=== PATIENT | female | born 2000 | race Caucasian/White ===

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

== ENCOUNTER 2019-01-22 05:38 | Observation (INO) | payer OTHER ==
[2019-01-22 07:02] LABS: Appearance CLOUDY (CLEAR); Bacteria MODERATE /HPF (NEGATIVE); Bilirubin NEGATIVE (NEGATIVE); Blood NEGATIVE Ery/ul (0-5); Epithelial Cells RARE /HPF (FEW); Glucose NEGATIVE (NEGATIVE); Ketones NEGATIVE (NEGATIVE); Leukocyte Esterase TRACE (NEGATIVE); Mucus MODERATE /HPF (NEGATIVE); Nitrite NEGATIVE (NEGATIVE); Protein,Urine Dip 100 (Negative); Specific Gravity 1.024 (1.005-1.025); Urobilinogen NEGATIVE mg/dL (0-1)
[2019-01-22 07:12] LABS: Amphetamine,Urine NEGATIVE (NEGATIVE); Barbiturate,Urine NEGATIVE (NEGATIVE); Benzodiazepine,Urine NEGATIVE (NEGATIVE); Cocaine,Urine NEGATIVE (NEGATIVE); Methadone,Urine NEGATIVE (NEGATIVE); Opiate,Urine NEGATIVE (NEGATIVE); PCP,Urine NEGATIVE (NEGATIVE); THC,Urine POSITIVE (NEGATIVE)
[2019-01-22 08:42] VITALS: BP 114/56; PULSE 73
== END 2019-01-22 09:15 | disposition home or self-care (01) ==
LOC: NURS 05:38 → OB 05:39
PROVIDERS: ADMIT Family Medicine; ATTEND Family Medicine
DX: Z34.82 Encounter for supervision of other normal pregnancy, second trimester (principal)
CPT/HCPCS: 80307; 81001; 87086; G0378

== ENCOUNTER 2019-03-10 04:30 | Observation (INO) | payer OTHER ==
[2019-03-10 05:10] LABS: Appearance SLIGHTLY CLOUDY (CLEAR); Bilirubin NEGATIVE (NEGATIVE); Blood NEGATIVE Ery/ul (0-5); Epithelial Cells RARE /HPF (FEW); Glucose NEGATIVE (NEGATIVE); Ketones NEGATIVE (NEGATIVE); Leukocyte Esterase NEGATIVE (NEGATIVE); Mucus SLIGHT /HPF (NEGATIVE); Nitrite NEGATIVE (NEGATIVE); Protein,Urine Dip 30 (Negative); RBC 0-2 /HPF (0-2); Specific Gravity 1.024 (1.005-1.025); Urobilinogen NEGATIVE mg/dL (0-1)
[2019-03-10 05:17] LABS: Amphetamine,Urine NEGATIVE (NEGATIVE); Barbiturate,Urine NEGATIVE (NEGATIVE); Benzodiazepine,Urine NEGATIVE (NEGATIVE); Cocaine,Urine NEGATIVE (NEGATIVE); Methadone,Urine NEGATIVE (NEGATIVE); Opiate,Urine NEGATIVE (NEGATIVE); PCP,Urine NEGATIVE (NEGATIVE); THC,Urine POSITIVE (NEGATIVE)
[2019-03-10] MEDS ORDERED: Sodium Chloride 0.9% 1000 ML 1,000 ML IV STA (05:24)
[2019-03-10] MEDS ORDERED: Lactated Ringers 1,000 ML IV SCH (05:30)
[2019-03-10] MEDS ORDERED: Zofran 4 MG/2 ML VIAL IV PRN (06:29)
[2019-03-10 06:33] LABS: BASOPHIL % 0.1 % (0.0-0.4); Basophil (Absolute #) 0.01 (0-0.4); Eosinophil % 0.5 % (0.00-5.0); Eosinophil (Absolute #) 0.08 (0-0.5); Granulocyte Absolute (ANC) 15.06 (1.4-6.9); Granulocytes % 85.5 % (36.0-66.0); Hematocrit 36.4 % (35-47); Hemoglobin 12.1 gm/dl (12.0-16.0); Lymphocyte (Absolute #) 1.44 (1.0-4.6); Lymphocytes % 8.2 % (24.0-44.0); Mean Cell Volume 91.2 fl (78-100); Mean Corpuscular Hemoglobin 30.3 pg (26-32); Mean Corpuscular Hgb Concent. 33.2 g/dl (32-36); Mean Platelet Volume 10.4 fl (6-9.5); Monocytes % 5.7 % (0.0-12.0); Platelet Count 248 K/mm3 (150-450); Red Blood Count 3.99 M/mm3 (4.1-5.4); Red Cell Distribution Width 12.6 % (11.5-14.0); White Blood Count 17.6 K/mm3 (4.0-10.5)
[2019-03-10 06:58] LABS: ALBUMIN 3.3 g/dL (3.5-5.0); ALKALINE PHOSPHATASE 89 U/L (38-126); ANION GAP 12.1 MEQ/L (5-15); BLOOD UREA NITROGEN 7 mg/dL (7-17); CHLORIDE 105 mmol/L (98-107); Calcium 8.7 mg/dL (8.4-10.2); Carbon Dioxide 21 mmol/L (22-30); Creatinine 1 0.32 mg/dL (0.52-1.04); Glucose 90 mg/dL (74-106); Potassium 3.6 mmol/L (3.5-5.1); SGOT/AST 19 U/L (14-36); SGPT/ALT 13 U/L (0-35); SODIUM 134 mmol/L (137-145); Total Protein 6.3 g/dL (6.3-8.2)
[2019-03-10] MEDS ORDERED: ROCEPHIN 1 Gm-D5w 50 ml Bag** 1 G/50 ML IVPB IV SCH ×2 (10:00→22:00)
[2019-03-10 10:04] VITALS: BP 107/59; PULSE 88
== END 2019-03-10 09:45 | disposition home or self-care (01) ==
LOC: OB 04:30
PROVIDERS: ADMIT Family Medicine; ATTEND Family Medicine
DX: Z34.83 Encounter for supervision of other normal pregnancy, third trimester (principal)
CPT/HCPCS: 36415; 80053; 80307; 81001; 85025; 87086; G0378; J0696; J2405

== ENCOUNTER 2019-04-07 15:25 | Emergency (ER) | payer OTHER ==
[2019-04-07 15:36] VITALS: BP 129/78; PULSE 92; O2SAT 97
--- NOTE | 2019-04-07 15:40 | ERPHSYRPT ---
- History of Present Illness Time Seen by Provider: 04/07/19 15:36 Source: patient Physician History: Patient is 19-year-old female who works at the local [employer]. Recently him month ago one case of hepatitis C was documented and the person who has a hepatitis A was rush Lópezler at this [employer]. Local health department has already contacted us and give us information to this to be to the people who come and seek attention regarding this matter. We gave all the pimple next to the patient and explained her that she should contact health department on Tuesday morning. Patient is not showing any sign of hepatitis. Allergies/Adverse Reactions: No Known Drug Allergies Allergy (Verified 12/10/18 00:43) Home Medications: Vits W-Ca,Fe,FA(<1Mg) [] 1 tablet PO DAILY 02/21/18 [History] Hx Tetanus, Diphtheria Vaccination/Date Given: Yes Hx Influenza Vaccination/Date Given: No Hx Pneumococcal Vaccination/Date Given: No - Review of Systems Constitutional: No Fever, No Chills Eyes: No Symptoms Ears, Nose, & Throat: No Symptoms Respiratory: No Cough, No Dyspnea Cardiac: No Chest Pain, No Edema, No Syncope Abdominal/Gastrointestinal: No Abdominal Pain, No Nausea, No Vomiting, No Diarrhea Genitourinary Symptoms: No Dysuria Musculoskeletal: No Back Pain, No Neck Pain Skin: No Rash Neurological: No Dizziness, No Focal Weakness, No Sensory Changes Psychological: No Symptoms Endocrine: No Symptoms All Other Systems: Reviewed and Negative - Past Medical History Pertinent Past Medical History: Yes Neurological History: No Pertinent History ENT History: No Pertinent History Cardiac History: No Pertinent History Respiratory History: No Pertinent History Endocrine Medical History: No Pertinent History Musculoskeletal History: No Pertinent History GI Medical History: No Pertinent History History: No Pertinent History Psycho-Social History: Anxiety, Depression Female Reproductive Disorders: No Pertinent History - Past Surgical History Past Surgical History: Yes Neuro Surgical History: No Pertinent History Cardiac: No Pertinent History Respiratory: No Pertinent History Gastrointestinal: No Pertinent History Genitourinary: No Pertinent History Musculoskeletal: No Pertinent History Female Surgical History: Section - Social History Smoking Status: Current every day smoker How long have you smoked: 6 yrs Exposure to second hand smoke: Yes Drug Use: none Patient Lives Alone: No - Physical Exam General Appearance: no apparent distress, alert Eye Exam: PERRL/EOMI, eyes nml inspection Ears, Nose, Throat Exam: normal ENT inspection, TMs normal, pharynx normal, moist mucous membranes Neck Exam: normal inspection, non-tender, supple, full range of motion Respiratory Exam: normal breath sounds, lungs clear, No respiratory distress Cardiovascular Exam: regular rate/rhythm, normal heart sounds, normal peripheral pulses Gastrointestinal/Abdomen Exam: soft, normal bowel sounds, No tenderness, No mass Back Exam: normal inspection, normal range of motion, No CVA tenderness, No vertebral tenderness Extremity Exam: normal inspection, normal range of motion, pelvis stable Neurologic Exam: alert, oriented x 3, cooperative, normal mood/affect, nml cerebellar function, nml station & gait, sensation nml, No motor deficits Skin Exam: normal color, warm, dry, No rash Lymphatic Exam: No adenopathy - Course Nursing assessment & vital signs reviewed: Yes - Progress Progress: improved Counseled pt/family regarding: diagnosis, need for follow-up - Departure Departure Disposition: Home Clinical Impression: Exposure to hepatitis A Condition: Stable Critical Care Time: No Referrals: GAVI ARORA [Primary Care Provider] - Additional Instructions: please read instruction provided by health department for hepatits A . Follow up with health department on tuesday AM
== END 2019-04-07 15:49 | disposition home or self-care (01) ==
LOC: ED 15:25
DX: Z20.5 Contact with and (suspected) exposure to viral hepatitis (principal); F41.9 Anxiety disorder, unspecified; F32.9 Major depressive disorder, single episode, unspecified
CPT/HCPCS: 99283

== ENCOUNTER 2019-04-12 10:31 | Observation (INO) | payer OTHER ==
[2019-04-12 11:04] VITALS: O2SAT 98
[2019-04-12 11:16] LABS: Appearance CLOUDY (CLEAR); Bacteria FEW /HPF (NEGATIVE); Bilirubin NEGATIVE (NEGATIVE); Blood NEGATIVE Ery/ul (0-5); Epithelial Cells FEW /HPF (FEW); Glucose NEGATIVE (NEGATIVE); Ketones NEGATIVE (NEGATIVE); Leukocyte Esterase TRACE (NEGATIVE); Mucus MANY /HPF (NEGATIVE); Nitrite NEGATIVE (NEGATIVE); Protein,Urine Dip 30 (Negative); Urobilinogen NEGATIVE mg/dL (0-1)
[2019-04-12 11:26] LABS: Amphetamine,Urine NEGATIVE (NEGATIVE); Barbiturate,Urine NEGATIVE (NEGATIVE); Benzodiazepine,Urine NEGATIVE (NEGATIVE); Cocaine,Urine NEGATIVE (NEGATIVE); Methadone,Urine NEGATIVE (NEGATIVE); Opiate,Urine NEGATIVE (NEGATIVE); PCP,Urine NEGATIVE (NEGATIVE); THC,Urine POSITIVE (NEGATIVE)
[2019-04-12 13:33] VITALS: BP 121/60; PULSE 80
== END 2019-04-12 13:32 | disposition home or self-care (01) ==
LOC: OB 10:31
PROVIDERS: ADMIT Family Medicine; ATTEND Family Medicine
DX: Z34.83 Encounter for supervision of other normal pregnancy, third trimester (principal)
CPT/HCPCS: 80307; 81001; 87086; G0378

== ENCOUNTER 2019-04-29 11:03 | Observation (INO) | payer OTHER ==
[2019-04-29 14:31] LABS: Amphetamine,Urine NEGATIVE (NEGATIVE); Barbiturate,Urine NEGATIVE (NEGATIVE); Benzodiazepine,Urine NEGATIVE (NEGATIVE); Cocaine,Urine NEGATIVE (NEGATIVE); Methadone,Urine NEGATIVE (NEGATIVE); Opiate,Urine NEGATIVE (NEGATIVE); PCP,Urine NEGATIVE (NEGATIVE); THC,Urine POSITIVE (NEGATIVE)
[2019-04-29 16:19] VITALS: BP 120/65; PULSE 65
== END 2019-04-29 15:30 | disposition home or self-care (01) ==
LOC: MED SURG 11:03
PROVIDERS: ADMIT Family Medicine; ATTEND Family Medicine
DX: Z34.83 Encounter for supervision of other normal pregnancy, third trimester (principal)
CPT/HCPCS: 80307; G0378

== ENCOUNTER 2019-05-02 05:11 | Inpatient (IN) | payer OTHER ==
[~2019-05-02 05:11] MED LIST: BICITRA 30 ML CUP PO SCH; Lactated Ringers 1,000 ML IV ONE; Lactated Ringers 1,000 ML IV SCH; Pepcid 20 MG VIAL IV SCH; Reglan 10 MG/2 ML IV SCH
[2019-05-02] MEDS ORDERED: CEFAZOLIN 2 GM-D5W BAG** 2 GM/50 ML ML IV SCH (05:30)
[2019-05-02 05:53] LABS: Hematocrit 35.2 % (35-47); Hemoglobin 11.5 gm/dl (12.0-16.0); INR 0.98 (0.8-3.0); Mean Cell Volume 90.5 fl (78-100); Mean Corpuscular Hgb Concent. 32.7 g/dl (32-36); Mean Platelet Volume 11.3 fl (6-9.5); PROTIME 11.1 SECONDS (9.95-12.35); Platelet Count 205 K/mm3 (150-450); Red Blood Count 3.89 M/mm3 (4.1-5.4); Red Cell Distribution Width 13.3 % (11.5-14.0); White Blood Count 8.8 K/mm3 (4.0-10.5)
[2019-05-02 05:55] LABS: PTT 28.8 SECONDS (25.3-37.0)
[2019-05-02 06:03] LABS: Mean Corpuscular Hemoglobin 29.5 pg (26-32)
[2019-05-02 06:08] LABS: Appearance SLIGHTLY CLOUDY (CLEAR); Bacteria FEW /HPF (NEGATIVE); Bilirubin NEGATIVE (NEGATIVE); Blood NEGATIVE Ery/ul (0-5); Epithelial Cells FEW /HPF (FEW); Glucose NEGATIVE (NEGATIVE); Hyaline Casts 0-2 /LPF (0-2); Ketones NEGATIVE (NEGATIVE); Leukocyte Esterase SMALL (NEGATIVE); Mucus SLIGHT /HPF (NEGATIVE); Nitrite NEGATIVE (NEGATIVE); Protein,Urine Dip 30 (Negative); RBC 0-2 /HPF (0-2); Specific Gravity 1.021 (1.005-1.025); Urobilinogen NEGATIVE mg/dL (0-1)
[2019-05-02 06:15] LABS: Amphetamine,Urine NEGATIVE (NEGATIVE); Barbiturate,Urine NEGATIVE (NEGATIVE); Benzodiazepine,Urine NEGATIVE (NEGATIVE); Cocaine,Urine NEGATIVE (NEGATIVE); Methadone,Urine NEGATIVE (NEGATIVE); Opiate,Urine NEGATIVE (NEGATIVE); PCP,Urine NEGATIVE (NEGATIVE); THC,Urine POSITIVE (NEGATIVE)
[2019-05-02] MEDS ORDERED: PHENYLEPHRINE HCL ONE (06:45)
[2019-05-02] MEDS ORDERED: Pitocin 10 UNITS/ML ONE ×2 (06:45→07:51)
[2019-05-02] MEDS ORDERED: MARCAINE 0.5%-EPI 1:200,000 VL IJ ONE (06:47)
[2019-05-02] MEDS ORDERED: Astramorph-Pf 5 MG/10 ML ONE (06:48)
[2019-05-02 06:53] LABS: ABO TYPING A; Antibody Screen NEGATIVE (NEGATIVE); RH TYPING POSITIVE
[2019-05-02] MEDS ORDERED: TORAdol 30 mg Injection ONE (07:23)
[2019-05-02 08:02] LABS: Appearance CLEAR (CLEAR); Bilirubin NEGATIVE (NEGATIVE); Blood NEGATIVE Ery/ul (0-5); Glucose NEGATIVE (NEGATIVE); Ketones NEGATIVE (NEGATIVE); Leukocyte Esterase NEGATIVE (NEGATIVE); Mucus SLIGHT /HPF (NEGATIVE); Nitrite NEGATIVE (NEGATIVE); Protein,Urine Dip NEGATIVE (Negative); Specific Gravity 1.015 (1.005-1.025); Urobilinogen NEGATIVE mg/dL (0-1); WBC 0-2 /HPF (0-5)
[2019-05-02] MEDS ORDERED: Compazine 10 MG/2 ML ONE (08:37)
[2019-05-02] MEDS ORDERED: DEMEROL 50 MG IV PRN (09:00)
[2019-05-02] MEDS ORDERED: MORPHINE SULFATE 2 MG INJ IV PRN (09:00)
[2019-05-02] MEDS ORDERED: Narcan 0.4 MG/ML IV PRN (09:00)
[2019-05-02] MEDS ORDERED: HOLD NARCOTIC ANALGESICS AND SEDATIVES X24 HR MC PRN (09:00)
[2019-05-02] MEDS ORDERED: Dulcolax 10 MG SUPP PR PRN (09:00)
[2019-05-02] MEDS ORDERED: Zofran 4 MG/2 ML VIAL IV PRN (09:00)
[2019-05-02] MEDS ORDERED: CORTISONE 1% CREAM TP PRN (09:00)
[2019-05-02] MEDS ORDERED: CLARITIN 10 MG PO PRN (09:00)
[2019-05-02] MEDS ORDERED: Anucort-HC SUPPOSITORY PR PRN (09:00)
[2019-05-02] MEDS ORDERED: PERCOCET TABLET 5/325MG PO PRN (09:00)
[2019-05-02] MEDS ORDERED: Nubain 10 MG/ML IV PRN (09:00)
[2019-05-02] MEDS ORDERED: LANSINOH 40 GM TOP PRN (09:00)
[2019-05-02] MEDS ORDERED: TYLENOL EXTRA STRENGTH 500 MG PO PRN (09:00)
[2019-05-02] MEDS ORDERED: Mylicon 80MG PO PRN (09:00)
[2019-05-02] MEDS: Dextrose 5%-Lr IV Solution 1000 ML 1,000 ML IV SCH ×2 (09:59→18:31)
[2019-05-02] MEDS ORDERED: FERREX 150 PO SCH (10:00)
[2019-05-02] MEDS: BENADRYL 50 MG/ML IV PRN ×2 (10:49→23:36)
--- NOTE | 2019-05-02 11:16 | OP ---
SURGERY DATE/TIME: 05/02/2019 0701 PREOPERATIVE DIAGNOSES: 1) Term intrauterine . 2) History of prior section. POSTOPERATIVE DIAGNOSES: 1) Term intrauterine . 2) History of prior section. PROCEDURE: Repeat low transverse section. SURGEON: Isaiah Escalante M.D. ANESTHESIA: Spinal by Federico Clemons CRNA. ESTIMATED BLOOD LOSS: 300 cc. IV FLUIDS: 2 liters of crystalloid total. URINE OUTPUT: 200 cc of clear straw-colored urine. SPECIMENS: None. DESCRIPTION OF PROCEDURE: After informed written consent was obtained, the patient was taken to the operating room. She underwent spinal anesthesia and was prepped and draped in the usual sterile fashion. A low transverse skin incision was made by knife after adequate level of anesthesia was assessed. The incision was carried to the level of the fascia and was nicked on both sides of the midline and extended in horizontal fashion using curved Bahena scissors. The superior free edge of the fascia was then grasped with Chad clamps and the underlying rectus muscles were dissected free. The same was repeated inferiorly. The peritoneal cavity was then opened and extended in horizontal fashion. Bladder blade was inserted and bladder flap was then created and reflected over the lower uterine segment. Uterine incision was made by knife and carried down to the level of the amniotic membranes which were carefully artificially ruptured. There was thin meconium stained fluid present. A viable female infant with a strong cry immediately upon delivery was delivered from the vertex presentation. Bulb suctioned oropharynx and nares. The cord was clamped and cut and she was handed off to the awaiting nursery team. The uterus was exteriorized after the placenta was manually removed. The uterine cavity was sponge curetted clean with lap sponge. The uterine incision was closed with #1 chromic in a running locked fashion. Good closure and good hemostasis were achieved. The posterior cul-de-sac was wiped free of blood and clot with a moist lap sponge. The uterus was returned to the peritoneal cavity and the lateral gutters were wiped free of blood and clot with a moist lap sponge. The uterine incision was inspected and noted to be hemostatic. Next, the fascia was closed with 0 Vicryl in a running fashion with good closure and good hemostasis were achieved. The subcutaneous fat was irrigated with warm, sterile saline and any areas of bleeding were cauterize with electrocautery. Finally, the skin layer was closed with 4-0 undyed Vicryl in a running subcuticular fashion. Steri-Strips and occlusive dressing were placed over the incision. The patient was transferred to the recovery in good condition.
[2019-05-02] MEDS: Colace 100 MG PO SCH (22:08)
[2019-05-03 03:24] VITALS: O2SAT 98
[2019-05-03] MEDS: MOTRIN 400 MG PO PRN ×2 (04:49→14:49)
[2019-05-03 05:49] LABS: BASOPHIL % 0.1 % (0.0-0.4); Basophil (Absolute #) 0.01 (0-0.4); Eosinophil % 0.6 % (0.00-5.0); Eosinophil (Absolute #) 0.05 (0-0.5); Granulocyte Absolute (ANC) 6.53 (1.4-6.9); Granulocytes % 74.1 % (36.0-66.0); Hematocrit 31.5 % (35-47); Hemoglobin 10.2 gm/dl (12.0-16.0); Mean Cell Volume 92.1 fl (78-100); Mean Corpuscular Hemoglobin 29.8 pg (26-32); Mean Corpuscular Hgb Concent. 32.4 g/dl (32-36); Mean Platelet Volume 11.3 fl (6-9.5); Monocyte (Absolute #) 0.72 (0.0-1.3); Monocytes % 8.2 % (0.0-12.0); Platelet Count 153 K/mm3 (150-450); Red Blood Count 3.42 M/mm3 (4.1-5.4); Red Cell Distribution Width 13.5 % (11.5-14.0); White Blood Count 8.8 K/mm3 (4.0-10.5)
[2019-05-03] MEDS ORDERED: Phenergan 25 MG INJ IM PRN (09:00)
[2019-05-03] MEDS ORDERED: DEMEROL 50 MG IV PRN (09:00)
[2019-05-03] MEDS: Colace 100 MG PO SCH ×2 (10:30→22:29)
[2019-05-03] MEDS: NORCO 5/325 MG PO PRN ×2 (11:32→19:57)
--- NOTE | 2019-05-04 07:50 | PCM.DS ---
Discharge Summary Date of Admission: 05/02/19 05:11 Admitting Physician: PAULO DOSHI Consults: Consults on Case 05/02/19 05:00 Notify Anesthesia Provider ROUTINE Notify Physician OF ADMISSION Primary Care Provider: GAVI ARORA Allergies Allergies No Known Drug Allergies Allergy (Verified 12/10/18 00:43) Hospital Summary - Hospital Course Hospital Course: Pt came in 19 yo at 39w 4d for repeat c/section. She was delivered by Dr. Doshi (for full details, see his operative note). Baby 7lb 10 oz. Since delivery she has been using norco with some tylenol/ibuprofen for her pain. Her bleeding has lessened; no large clots. She is . Will be discharged to home today on norco and ibuprofen. F/u with Dr. Doshi in 1 week (1 week from Tuesday) - although due to the holiday could see Dr. Wagner M- next week if needed and could see me next Tuesday if needed. - Vitals & Intake/Output Vital Signs: Vital Signs Temperature 97.8 F 05/04/19 02:00 Pulse Rate 61 05/04/19 02:00 Respiratory Rate 18 05/04/19 02:00 Blood Pressure 132/73 05/04/19 02:00 O2 Sat by Pulse Oximetry 98 05/03/19 04:00 Intake & Output: Intake & Output 05/01/19 05/02/19 05/03/19 05/04/19 11:59 11:59 11:59 11:59 Intake Total 3277 860 Output Total 4050 Balance -773 860 Weight 81.647 kg - Lab Result Diagrams: 05/03/19 05:05 Lab Results-Last 24 Hrs: Lab Results-Last 24 Hours 05/03/19 Range/Units 05:05 Hep Bs Antigen Non Reactive (Non Reactive) Micro Results-Entire Visit: Microbiology 05/02/19 07:17 Urine Culture - Final Urine, Catheterized NO GROWTH - Procedures and Test Procedures and Tests throughout Hospitalization: Therapy Orders & Screens 05/02/19 07:00 Standby Routine Comment: Diagnosis: Repeat Section Discharge Exam General Appearance: no apparent distress, alert Neurologic Exam: oriented x 3, cooperative Eye Exam: eyes nml inspection Ears, Nose, Throat Exam: moist mucous membranes Neck Exam: normal inspection Respiratory Exam: normal breath sounds, lungs clear, No crackles/rales, No rhonchi, No wheezing Cardiovascular Exam: regular rate/rhythm, normal heart sounds, No murmur Gastrointestinal/Abdomen Exam: soft, normal bowel sounds, other (wound c/d/i. fundus firm under umbilicus) Extremity Exam: normal inspection, No pedal edema, No swelling Skin Exam: normal color, warm, dry, No rash Final Diagnosis/Problem List - Final Discharge Diagnosis/Problem (1) delivery delivered Current Visit: No Status: Acute Assessment & Plan: POD #2, doing great, home today with baby. Code(s): O82 - ENCOUNTER FOR DELIVERY WITHOUT INDICATION (2) (infant) Current Visit: No Status: Acute Code(s): Z78.9 - OTHER SPECIFIED HEALTH STATUS - Discharge Disposition: Home, Self-Care Condition: Good Prescriptions: New Ibuprofen 600 mg PO TID PRN #35 tablet PRN Reason: Pain Hydrocodone/APAP 5-325 Tab^^^ [[place] 5-325 Tablet^^^] 1 each PO Q4H PRN #30 tablet MDD 6 PRN Reason: Severe Pain Ferrous Sulfate 325 mg [Feosol 325 mg] 325 mg PO DAILY #30 tablet Continue Vits W-Ca,Fe,FA(<1Mg) [] 1 tablet PO DAILY Loratadine [Claritin] 10 mg PO DAILY Follow up with: GAVI ARORA [Primary Care Provider] - 1 Week
[2019-05-04] MEDS: NORCO 5/325 MG PO PRN (08:17)
[2019-05-04 09:12] VITALS: BP 132/79; PULSE 66
== END 2019-05-04 12:55 | disposition home or self-care (01) | DRG 788 ==
LOC: OB 05:11 → OBSVTOIN 05:11 → MED SURG 05-03 09:57
PROVIDERS: ADMIT Family Medicine; ATTEND Family Medicine
PROC: 10D00Z1 Extraction of Products of Conception, Low, Open Approach (ICD-10-PCS; principal; 2019-05-02)
DX: O34.211 Maternal care for low transverse scar from previous cesarean delivery (principal); Z3A.39 39 weeks gestation of pregnancy; Z37.0 Single live birth
CPT/HCPCS: 36415; 62322; 64488; 76942; 80307; 81001; 85025; 85027; 85610; 85730; 86850; 86900; 86901; 87086; 87340; 94799; G0378; J0690; J1200; J1885; J2274; J2370; J2590; A9270-GY

== ENCOUNTER 2019-05-19 13:38 | Emergency (ER) | payer OTHER ==
[2019-05-19] MEDS ORDERED: Rocephin 1000 MG INJ IM STA (14:03)
[2019-05-19 14:07] VITALS: O2SAT 16
[2019-05-19] MEDS ORDERED: Sodium Chloride 0.9% 1000 ML 1,000 ML IV SCH (14:15)
[2019-05-19 14:23] LABS: BASOPHIL % 0.2 % (0.0-0.4); Basophil (Absolute #) 0.02 (0-0.4); Eosinophil % 1.4 % (0.00-5.0); Eosinophil (Absolute #) 0.11 (0-0.5); Granulocytes % 69.7 % (36.0-66.0); Hematocrit 35.3 % (35-47); Hemoglobin 11.6 gm/dl (12.0-16.0); Lymphocyte (Absolute #) 1.76 (1.0-4.6); Lymphocytes % 21.9 % (24.0-44.0); Mean Cell Volume 89.6 fl (78-100); Mean Corpuscular Hemoglobin 29.4 pg (26-32); Mean Corpuscular Hgb Concent. 32.9 g/dl (32-36); Mean Platelet Volume 9.5 fl (6-9.5); Monocyte (Absolute #) 0.55 (0.0-1.3); Monocytes % 6.8 % (0.0-12.0); Platelet Count 310 K/mm3 (150-450); Red Blood Count 3.94 M/mm3 (4.1-5.4); Red Cell Distribution Width 12.6 % (11.5-14.0)
[2019-05-19] MEDS ORDERED: Sodium Chloride 0.9% 1000 ML 1,000 ML ONE ×2 (14:28→15:33)
--- NOTE | 2019-05-19 14:56 | ERPHSYRPT ---
- History of Present Illness Time Seen by Provider: 05/19/19 14:02 Source: patient Exam Limitations: clinical condition Patient Subjective Stated Complaint: c/s two weeks ago and now having pain right side of incision sight and small open area with slight drainage. Triage Nursing Assessment: ambulated to room per self. skin w/d, color normal, small amt white drainage noted to right side of incision. Physician History: PATIENT UNDERWENT A 2 WEEKS AGO NOW NOTICED DRAINAGE FROM WOUND. DENIES FEVER, CHILLS OR URINARY SYMPTOMS. Timing/Duration: yesterday Quality: painful Severity: mild Location: other (ABDOMINAL WOUND) Possible Causes: no cause identified Modifying Factors: Improves With: other (NOTHING) Associated Symptoms: other (DIZZINESS) Allergies/Adverse Reactions: No Known Drug Allergies Allergy (Verified 05/19/19 13:53) Home Medications: Vits W-Ca,Fe,FA(<1Mg) [] 1 tablet PO DAILY 02/21/18 [History] Loratadine [Claritin] 10 mg PO DAILY 04/12/19 [History] Hx Tetanus, Diphtheria Vaccination/Date Given: Yes Hx Influenza Vaccination/Date Given: No Hx Pneumococcal Vaccination/Date Given: No - Review of Systems Constitutional: No Fever, No Chills Eyes: No Symptoms Ears, Nose, & Throat: No Symptoms Respiratory: No Cough, No Dyspnea Cardiac: No Chest Pain, No Edema, No Syncope Abdominal/Gastrointestinal: Other (INCISIONAL WOUND REDNESS AND DRAINAGE), No Abdominal Pain, No Nausea, No Vomiting, No Diarrhea Genitourinary Symptoms: No Dysuria Musculoskeletal: No Back Pain, No Neck Pain Skin: No Rash Neurological: No Dizziness, No Focal Weakness, No Sensory Changes Psychological: No Symptoms Endocrine: No Symptoms All Other Systems: Reviewed and Negative - Past Medical History Pertinent Past Medical History: Yes Neurological History: No Pertinent History ENT History: No Pertinent History Cardiac History: No Pertinent History Respiratory History: No Pertinent History Endocrine Medical History: No Pertinent History Musculoskeletal History: No Pertinent History GI Medical History: No Pertinent History History: No Pertinent History Psycho-Social History: Anxiety, Depression Female Reproductive Disorders: No Pertinent History - Past Surgical History Past Surgical History: Yes Neuro Surgical History: No Pertinent History Cardiac: No Pertinent History Respiratory: No Pertinent History Gastrointestinal: No Pertinent History Genitourinary: No Pertinent History Musculoskeletal: No Pertinent History Female Surgical History: Section - Social History Smoking Status: Current some day smoker How long have you smoked: 9 yrs Exposure to second hand smoke: Yes Drug Use: none Patient Lives Alone: No - Female History Hx Now: No - Nursing Vital Signs Nursing Vital Signs: Initial Vital Signs Temperature 97.5 F 05/19/19 13:49 Pulse Rate 105 H 05/19/19 13:49 Respiratory Rate 16 05/19/19 13:49 Blood Pressure 138/72 05/19/19 13:49 O2 Sat by Pulse Oximetry 16 L 05/19/19 13:49 Pain Scale Pain Intensity 5 - Physical Exam General Appearance: no apparent distress, alert Eye Exam: PERRL/EOMI, eyes nml inspection Ears, Nose, Throat Exam: normal ENT inspection, pharynx normal, moist mucous membranes Neck Exam: normal inspection, non-tender, supple, full range of motion Respiratory Exam: normal breath sounds, lungs clear, No respiratory distress Cardiovascular Exam: regular rate/rhythm, normal heart sounds Gastrointestinal/Abdomen Exam: soft, normal bowel sounds, mass, other (LOWER ABDOMINAL INCISIONAL WOUND, EDGES INTACT WITH STERI STRIPS, RIGHT LATERAL ASPECT OF WOUND WITH ERYTHRMA NO WOUND DEHISCENCE, NO DRAINAGE NOTED), No tenderness Back Exam: normal inspection, normal range of motion, No CVA tenderness, No vertebral tenderness Extremity Exam: normal inspection, normal range of motion Neurologic Exam: alert, oriented x 3, cooperative, normal mood/affect, sensation nml, No motor deficits Skin Exam: normal color, warm, dry SpO2 Interpretation: normal SpO2: 16 Ordered Tests: Active Orders 24 hr Category Date Time Status BLOOD CULTURE Stat Lab 05/19/19 14:20 Received CBC W DIFF Stat Lab 05/19/19 14:15 Completed UA W/RFX UR CULTURE Stat Lab 05/19/19 14:49 Completed Medication Summary Generic Name Dose Route Start Last Admin Trade Name Freq PRN Reason Stop Dose Admin Ceftriaxone Sodium mg 05/19/19 14:03 Rocephin 1000 Mg Inj IM 05/19/19 14:04 STAT STA Sodium Chloride 1,000 mls @ 500 mls/hr 05/19/19 14:15 05/19/19 14:41 Sodium Chloride 0.9% 1000 Ml IV 06/18/19 14:14 500 mls/hr .Q2H BRAVO Administration Lab/Rad Data: Laboratory Result Diagrams 05/19/19 14:15 Laboratory Results 05/19/19 05/19/19 Range/Units 14:49 14:15 WBC 8.0 (4.0-10.5) K/mm3 RBC 3.94 L (4.1-5.4) M/mm3 Hgb 11.6 L (12.0-16.0) gm/dl Hct 35.3 (35-47) % MCV 89.6 (78-100) fl MCH 29.4 (26-32) pg MCHC 32.9 (32-36) g/dl RDW 12.6 (11.5-14.0) % Plt Count 310 (150-450) K/mm3 MPV 9.5 (6-9.5) fl Gran % 69.7 H (36.0-66.0) % Eos # (Auto) 0.11 (0-0.5) Absolute Lymphs (auto) 1.76 (1.0-4.6) Absolute Monos (auto) 0.55 (0.0-1.3) Lymphocytes % 21.9 L (24.0-44.0) % Monocytes % 6.8 (0.0-12.0) % Eosinophils % 1.4 (0.00-5.0) % Basophils % 0.2 (0.0-0.4) % Absolute Granulocytes 5.60 (1.4-6.9) Basophils # 0.02 (0-0.4) Urine Color YELLOW (YELLOW) Urine Appearance SLIGHTLY CLOUDY (CLEAR) Urine pH 6.0 (5-6) Ur Specific [place] 1.021 (1.005-1.025) Urine Protein NEGATIVE (Negative) Urine Ketones NEGATIVE (NEGATIVE) Urine Blood NEGATIVE (0-5) Isaac/ul Urine Nitrite NEGATIVE (NEGATIVE) Urine Bilirubin NEGATIVE (NEGATIVE) Urine Urobilinogen NEGATIVE (0-1) mg/dL Ur Leukocyte Esterase SMALL (NEGATIVE) Urine WBC (Auto) 11-15 (0-5) /HPF Urine RBC (Auto) 0-2 (0-2) /HPF U Epithel Cells (Auto) RARE (FEW) /HPF Urine Bacteria (Auto) RARE (NEGATIVE) /HPF Urine Mucus (Auto) SLIGHT (NEGATIVE) /HPF Urine Culture Reflexed YES (NO) Urine Glucose NEGATIVE (NEGATIVE) mg/dL - Progress Progress: unchanged Progress Note: 05/19/19 14:55 IV NORMAL SALINE 500ML/HR AFTER 2 SETS OF BLOOD CULTURES, ROCEPHIN 1GM IVPB Counseled pt/family regarding: lab results, diagnosis - Departure Departure Disposition: Home Clinical Impression: ABDOMINAL INCISION WOUND CELLULITIS, URINARY TRACT INFECTION Condition: Stable Critical Care Time: No Referrals: GAVI ARORA [Primary Care Provider] - Additional Instructions: ANTIBIOTIC KEFLEX 500MG EVERY 6 HOURS FOR 10 DAYS. APPLY GAUZE DRESSING OVER WOUND EVERY 6 HOURS. TYLENOL EVERY 4 HOURS FOR FEVER NEEDED. CONSULT YOUR PRIMARY CARE PROVIDER FOR FOLLOWUP IN 4-5 DAYS. DRINK PLENTY OF FLUIDS. Prescriptions: Cephalexin Mh 500 mg [Keflex 500 mg] 500 mg PO QID #40 capsule
[2019-05-19 15:04] VITALS: PULSE 66
[2019-05-19 15:29] LABS: Appearance SLIGHTLY CLOUDY (CLEAR); Bacteria RARE /HPF (NEGATIVE); Bilirubin NEGATIVE (NEGATIVE); Blood NEGATIVE Ery/ul (0-5); Epithelial Cells RARE /HPF (FEW); Glucose NEGATIVE (NEGATIVE); Ketones NEGATIVE (NEGATIVE); Leukocyte Esterase SMALL (NEGATIVE); Mucus SLIGHT /HPF (NEGATIVE); Nitrite NEGATIVE (NEGATIVE); Protein,Urine Dip NEGATIVE (Negative); RBC 0-2 /HPF (0-2); Specific Gravity 1.021 (1.005-1.025); Urobilinogen NEGATIVE mg/dL (0-1)
[2019-05-19 16:06] VITALS: BP 121/73
== END 2019-05-19 16:05 | disposition home or self-care (01) ==
LOC: ED 13:38
DX: O86.01 Infection of obstetric surgical wound, superficial incisional site (principal); L03.311 Cellulitis of abdominal wall; N39.0 Urinary tract infection, site not specified
CPT/HCPCS: 36000; 36415; 81001; 85025; 87040; 87070; 87077; 87086; 87186; 96360; 96374; 99284

== ENCOUNTER 2019-09-10 16:33 | Emergency (ER) | payer OTHER ==
--- NOTE | 2019-09-10 17:41 | ERPHSYRPT ---
- History of Present Illness Time Seen by Provider: 09/10/19 17:35 Source: patient Exam Limitations: no limitations Patient Subjective Stated Complaint: Pt states "I have congestion, runny nose, cough, and a really sore throat." Triage Nursing Assessment: Pt presented alert and oriented X 3, skin pwd Pt ambulates with an upright steady gait, able to speak in clear full sentences. Pt in no apprent respiratory distress. Physician History: Patient has 3 weeks of nasal congestion, sinus congestion and pressure, post nasal drainage, sore throat and cough. Patient has not been evaluated or treated in the past 3 weeks. Timing/Duration: weeks (3) Severity: moderate ENT Location: throat Prearrival Treatment: no prearrival treatment Modifying Factors: Improves With: nothing Associated Symptoms: cough, facial pain/swelling, nasal congestion/drainage, sore throat, No ear pain (R), No ear pain (L), No fever, No chills, No change in hearing, No dizziness, No drooling, No ear drainage, No headache, No hearing loss, No jaw pain, No malaise, No motion sickness, No epistaxis, No nasal foreign body, No neck pain, No poor fluid intake, No poor solids intake, No ringing of ears, No swollen glands, No sinus infection, No tooth pain, No difficulty swallowing, No voice change Allergies/Adverse Reactions: No Known Drug Allergies Allergy (Verified 05/19/19 13:53) Home Medications: Loratadine [Claritin] 10 mg PO DAILY 04/12/19 [History] Fluoxetine HCl 10 mg [Prozac 10 mg] 10 mg PO DAILY 09/10/19 [History] Hx Tetanus, Diphtheria Vaccination/Date Given: No Hx Influenza Vaccination/Date Given: No Hx Pneumococcal Vaccination/Date Given: No Immunizations Up to Date: Yes - Review of Systems Constitutional: No Fever, No Chills, No Fatigue Eyes: No Discharge, No Eye Pain, No Vision Changes Ears, Nose, & Throat: Nose Congestion, Nose Discharge, Throat Pain, No Ear Pain , No Mouth Pain, No Mouth Swelling, No Throat Swelling, No Painful Swallowing Respiratory: Cough, No Dyspnea, No Dyspnea on Exertion (WEBB) Cardiac: No Chest Pain, No Edema, No Palpitations, No Syncope Abdominal/Gastrointestinal: No Abdominal Pain, No Nausea, No Vomiting, No Diarrhea Genitourinary Symptoms: No Dysuria, No Frequency, No Hematuria, No Flank Pain Musculoskeletal: No Arthralgias, No Back Pain, No Neck Pain, No Myalgias Skin: No Pruritis, No Rash Neurological: No Dizziness, No Focal Weakness, No Headache, No Tremors Psychological: No Anxiety Hematologic/Lymphatic: No Easy Bleeding, No Easy Bruising All Other Systems: Reviewed and Negative - Past Medical History Pertinent Past Medical History: Yes Neurological History: No Pertinent History ENT History: No Pertinent History Cardiac History: No Pertinent History Respiratory History: No Pertinent History Endocrine Medical History: No Pertinent History Musculoskeletal History: No Pertinent History GI Medical History: No Pertinent History History: No Pertinent History Psycho-Social History: Anxiety, Depression Female Reproductive Disorders: No Pertinent History - Past Surgical History Past Surgical History: Yes Neuro Surgical History: No Pertinent History Cardiac: No Pertinent History Respiratory: No Pertinent History Gastrointestinal: No Pertinent History Genitourinary: No Pertinent History Musculoskeletal: No Pertinent History Female Surgical History: Section - Social History Smoking Status: Current every day smoker How long have you smoked: years Exposure to second hand smoke: Yes Drug Use: none Patient Lives Alone: No - Female History Hx Last Menstrual Period: 08/26/2018 Hx Now: No - Nursing Vital Signs Nursing Vital Signs: Initial Vital Signs Temperature 99.4 F 09/10/19 17:17 Pulse Rate 92 H 09/10/19 17:17 Respiratory Rate 18 09/10/19 17:17 Blood Pressure 139/70 09/10/19 17:17 O2 Sat by Pulse Oximetry 99 09/10/19 17:17 Pain Scale Pain Intensity 4 - Physical Exam General Appearance: no apparent distress, alert Eye Exam: bilateral eye: normal inspection, PERRL, EOMI Ear Exam: bilateral ear: auricle normal, canal normal, TM normal Nasal Exam: normal inspection, sinus tenderness, No active bleeding, No discharge, No foreign body Throat Exam: normal, pharynx normal, moist mucus membranes, No dental tenderness , No excessive drooling, No foreign body, No mandibular swelling, No maxillary swelling, No pharynx swelling, No pharynx tenderness, No tongue swollen, No tonsillar exudate, No tonsillar swelling, No uvula swelling Neck Exam: normal inspection, non-tender, supple, full range of motion, trachea midline, No JVD, No lymphadenopathy (R), No lymphadenopathy (L), No tender lateral, No tender midline Cardiovascular/Respiratory Exam: chest non-tender, normal breath sounds, regular rate/rhythm, heart sounds normal, no JVD, no M/R/G, no respiratory distress Abdominal Exam: non-tender, soft, no organomegaly Neurologic Exam: alert, oriented x 3, cooperative, immigration officer II-XII nml as tested, normal mood/affect, sensation nml Skin Exam: normal color, warm, dry, No rash, No petechiae, No jaundice, No cyanosis SpO2 Interpretation: normal SpO2: 99 O2 Delivery: Room Air Ordered Tests: Medication Summary Discontinued Medications Generic Name Dose Route Start Last Admin Trade Name Freq PRN Reason Stop Dose Admin Amoxicillin/Clavulanate Potassium 875 mg 09/10/19 20:21 09/10/19 20:27 Augmentin 875-125 Tablet PO 09/10/19 20:22 875 mg STAT ONE Administration Amoxicillin/Clavulanate Potassium Confirm 09/10/19 20:25 Augmentin 875-125 Tablet Administered 09/10/19 20:26 Dose 875 mg .ROUTE .Eldarion ONE - Progress Progress: unchanged Counseled pt/family regarding: diagnosis, need for follow-up - Departure Departure Disposition: Home Clinical Impression: Elevated blood pressure reading without diagnosis of hypertension Acute pansinusitis, unspecified Qualifiers: Recurrence: non-recurrent Qualified Code(s): J01.40 - Acute pansinusitis, unspecified Acute pharyngitis Qualifiers: Pharyngitis/tonsillitis etiology: unspecified etiology Qualified Code(s): J02.9 - Acute pharyngitis, unspecified Condition: Good Critical Care Time: No Referrals: GAVI ARORA [Primary Care Provider] - Follow Up with PCP/3 days Instructions: Sore Throat, Adult (DC), Sinusitis, Adult (DC), DASH Diet Additional Instructions: return immediately back to the emergency room if any worse pain, difficulty swallowing, difficulty breathing, no chest pain, new productive cough, any fever spike or any other concerning signs or symptoms that were not present in today's emergency room visit for immediate reevaluation in the emergency department. Prescriptions: Amoxicillin/Potassium Clav [Augmentin 875-125 Tablet] 1 each PO BID #20 tablet Fluticasone Propionate [Flonase NASAL] 2 spray NS DAILY #1 bottle
[2019-09-10] MEDS ORDERED: Augmentin 875-125 Tablet PO ONE (20:21)
[2019-09-10] MEDS ORDERED: Augmentin 875-125 Tablet ONE (20:25)
[2019-09-10 21:52] VITALS: BP 128/74; PULSE 75; O2SAT 97
== END 2019-09-10 21:39 | disposition home or self-care (01) ==
LOC: ED 16:33
DX: R03.0 Elevated blood-pressure reading, without diagnosis of hypertension (principal); J01.40 Acute pansinusitis, unspecified; J02.9 Acute pharyngitis, unspecified
CPT/HCPCS: 99283; A9270-GY

== ENCOUNTER 2019-12-30 17:41 | Emergency (ER) | payer OTHER ==
[2019-12-30 18:10] LABS: Absolute Neutrophil Ct (ANC) 2.98 (1.4-6.9); BASOPHIL % 0.2 % (0.0-0.4); Basophil (Absolute #) 0.01 (0-0.4); Eosinophil % 2.4 % (0.00-5.0); Eosinophil (Absolute #) 0.13 (0-0.5); Hematocrit 40.7 % (35-47); Hemoglobin 13.5 gm/dl (12.0-16.0); Lymphocyte (Absolute #) 1.71 (1.0-4.6); Lymphocytes % 31.1 % (24.0-44.0); Mean Cell Volume 89.1 fl (78-100); Mean Corpuscular Hemoglobin 29.5 pg (26-32); Mean Corpuscular Hgb Concent. 33.2 g/dl (32-36); Mean Platelet Volume 10.4 fl (7.5-11.0); Monocyte (Absolute #) 0.67 (0.0-1.3); Monocytes % 12.2 % (0.0-12.0); Neutrophil % 54.1 % (36.0-66.0); Platelet Count 240 K/mm3 (150-450); Red Blood Count 4.57 M/mm3 (4.1-5.4); Red Cell Distribution Width 13.1 % (11.5-14.0); White Blood Count 5.5 K/mm3 (4.0-10.5)
--- NOTE | 2019-12-30 18:16 | ERPHSYRPT ---
- History of Present Illness Time Seen by Provider: 12/30/19 18:15 Source: patient Exam Limitations: no limitations Patient Subjective Stated Complaint: had vomiting and diarrhea for two days but is feeling better today. states she is here because she needs a medical clearance to return to work at [employer] tomorrow. Triage Nursing Assessment: ambulated to room per self. skin w/d, color normal. resp nonlabored. denies any symptoms today. Physician History: had vomiting and diarrhea for two days but is feeling better today. states she is here because she needs a medical clearance to return to work at [employer] tomorrow. Timing/Duration: day(s) (two days) Severity: mild Associated Symptoms: denies symptoms Allergies/Adverse Reactions: No Known Drug Allergies Allergy (Verified 12/30/19 17:58) Home Medications: Loratadine [Claritin] 10 mg PO DAILY PRN PRN 04/12/19 [History] Fluoxetine HCl 10 mg [Prozac 10 mg] 10 mg PO DAILY 09/10/19 [History] Divalproex Sodium [Depakote] 250 mg PO TID 12/30/19 [History] Fluticasone Propionate [Flonase NASAL] 2 spray NS DAILY PRN PRN 12/30/19 [ History] Pramipexole Di-HCl [Pramipexole Dihydrochloride] 0.125 mg PO DAILY 12/30/19 [ History] Hx Tetanus, Diphtheria Vaccination/Date Given: No Hx Influenza Vaccination/Date Given: No Hx Pneumococcal Vaccination/Date Given: No - Review of Systems Constitutional: No Fever, No Chills Eyes: No Symptoms Ears, Nose, & Throat: No Symptoms Respiratory: No Cough, No Dyspnea Cardiac: No Chest Pain, No Edema, No Syncope Abdominal/Gastrointestinal: No Abdominal Pain, No Nausea, No Vomiting, No Diarrhea Genitourinary Symptoms: No Dysuria Musculoskeletal: No Back Pain, No Neck Pain Skin: No Rash Neurological: No Dizziness, No Focal Weakness, No Sensory Changes Psychological: No Symptoms Endocrine: No Symptoms All Other Systems: Reviewed and Negative - Past Medical History Pertinent Past Medical History: Yes Neurological History: No Pertinent History ENT History: No Pertinent History Cardiac History: No Pertinent History Respiratory History: No Pertinent History Endocrine Medical History: No Pertinent History Musculoskeletal History: No Pertinent History GI Medical History: No Pertinent History History: No Pertinent History Psycho-Social History: Anxiety, Depression Female Reproductive Disorders: No Pertinent History - Past Surgical History Past Surgical History: Yes Neuro Surgical History: No Pertinent History Cardiac: No Pertinent History Respiratory: No Pertinent History Gastrointestinal: No Pertinent History Genitourinary: No Pertinent History Musculoskeletal: No Pertinent History Female Surgical History: Section - Social History Smoking Status: Current every day smoker How long have you smoked: 9 Exposure to second hand smoke: Yes Drug Use: none Patient Lives Alone: No - Female History Hx Now: No - Nursing Vital Signs Nursing Vital Signs: Initial Vital Signs Temperature 97.7 F 12/30/19 17:50 Pulse Rate 82 12/30/19 17:50 Respiratory Rate 16 12/30/19 17:50 Blood Pressure 115/75 12/30/19 17:50 O2 Sat by Pulse Oximetry 97 12/30/19 17:50 Pain Scale Pain Intensity 0 - Physical Exam General Appearance: no apparent distress, alert Eye Exam: PERRL/EOMI, eyes nml inspection Ears, Nose, Throat Exam: normal ENT inspection, TMs normal, pharynx normal, moist mucous membranes Neck Exam: normal inspection, non-tender, supple, full range of motion Respiratory Exam: normal breath sounds, lungs clear, No respiratory distress Cardiovascular Exam: regular rate/rhythm, normal heart sounds, normal peripheral pulses Gastrointestinal/Abdomen Exam: soft, normal bowel sounds, No tenderness, No mass Back Exam: normal inspection, normal range of motion, No CVA tenderness, No vertebral tenderness Extremity Exam: normal inspection, normal range of motion, pelvis stable Neurologic Exam: alert, oriented x 3, cooperative, normal mood/affect, nml cerebellar function, nml station & gait, sensation nml, No motor deficits Skin Exam: normal color, warm, dry, No rash Lymphatic Exam: No adenopathy SpO2: 97 - Course Nursing assessment & vital signs reviewed: Yes Ordered Tests: Active Orders 24 hr Category Date Time Status CBC W DIFF Stat Lab 12/30/19 17:53 Ordered CMP Stat Lab 12/30/19 17:53 Ordered - Progress Progress: improved Counseled pt/family regarding: lab results, diagnosis, need for follow-up - Departure Departure Disposition: Home Clinical Impression: Viral syndrome Condition: Stable Critical Care Time: No Referrals: GAVI ARORA [Primary Care Provider] - Instructions: Fever, Adult (DC) Forms: Work/School Release Form
[2019-12-30 18:39] LABS: ALBUMIN 4.6 g/dL (3.5-5.0); ALKALINE PHOSPHATASE 67 U/L (38-126); ANION GAP 11.1 MEQ/L (5-15); BLOOD UREA NITROGEN 11 mg/dL (7-17); CHLORIDE 109 mmol/L (98-107); Carbon Dioxide 24 mmol/L (22-30); Creatinine 1 0.62 mg/dL (0.52-1.04); Glucose 100 mg/dL (74-106); Potassium 3.8 mmol/L (3.5-5.1); SGOT/AST 19 U/L (14-36); SGPT/ALT 13 U/L (0-35); SODIUM 140 mmol/L (137-145); Total Protein 7.9 g/dL (6.3-8.2)
[2019-12-30 18:49] VITALS: BP 124/72; PULSE 72; O2SAT 99
== END 2019-12-30 18:57 | disposition home or self-care (01) ==
LOC: ED 17:41
DX: B34.9 Viral infection, unspecified (principal)
CPT/HCPCS: 36415; 80053; 85025; 99283

== ENCOUNTER 2020-02-02 01:48 | Emergency (ER) | payer OTHER ==
[2020-02-02 02:06] VITALS: O2SAT 97
[2020-02-02] MEDS ORDERED: GI COCKTAIL 45 ML (Maalox/Lidocaine) PO ONE (02:12)
[2020-02-02] MEDS ORDERED: XYLOCAINE HCl Viscous ONE (02:15)
[2020-02-02] MEDS ORDERED: MAALOX ES 30 ML UNIT DOSE ONE (02:15)
--- NOTE | 2020-02-02 02:15 | ERPHSYRPT ---
- History of Present Illness Time Seen by Provider: 02/02/20 02:03 Source: patient Exam Limitations: no limitations Patient Subjective Stated Complaint: pt states after laying down she had burning pain in the back of her throat. states pain is worse when she beds over or lays down Triage Nursing Assessment: pt alert and oriented, answers questions approp. pt ambulatory with steady gait noted. skin pink warm and dry. respirations nonlabored with lungs cta. no redness noted to throat Physician History: 19 years old female with history of anxiety, depression, acid reflux, restless leg syndrome presented in the ER with chief complaint of burning sensation in the lower throat and esophagus after she took her nighttime pill of Prozac. It started after lying down with dull burning sensation mild to moderate intensity , took some Tums with no significant relief. Patient reported also gets worse with bending forward and has some icy sensation with deep breathing in the throat. No difficulty breathing or chest pain. She has not been taking any PPIs or H2 blockers. Patient is a smoker and has chronic smoker cough which is not any worse than usual. She also has some nasal/sinus congestion with drainage going at the back of the throat. No fever or chills reported. Timing/Duration: hour(s) (3), intermittent, sudden, worse Severity: moderate Modifying Factors: Improves With: rest Associated Symptoms: heartburn, cough, No nausea, No vomiting, No abdominal pain , No chest pain, No fever, No headaches, No loss of appetite, No malaise Allergies/Adverse Reactions: No Known Drug Allergies Allergy (Verified 02/02/20 02:09) Home Medications: Fluoxetine HCl 10 mg [Prozac 10 mg] 20 mg PO DAILY 09/10/19 [History] Hx Tetanus, Diphtheria Vaccination/Date Given: Yes Hx Influenza Vaccination/Date Given: No Hx Pneumococcal Vaccination/Date Given: No Immunizations Up to Date: Yes Travel Risk - International Travel Have you traveled outside of the country in past 3 weeks: No Have you or anyone close to you been diagnosed with or: No Do your reside in a community with a known COVID-19 case?: Yes If Yes where:: [facility] - Coronavirus Screening Has patient experienced Coronavirus symptoms: No - Review of Systems Constitutional: No Symptoms Eyes: No Symptoms Ears, Nose, & Throat: Nose Congestion, Sinus Drainage, Throat Pain Respiratory: Cough Cardiac: No Symptoms Abdominal/Gastrointestinal: No Symptoms Genitourinary Symptoms: No Symptoms Musculoskeletal: No Symptoms Skin: No Symptoms Neurological: No Symptoms Psychological: No Symptoms Endocrine: No Symptoms Hematologic/Lymphatic: No Symptoms Immunological/Allergic: No Symptoms - Past Medical History Pertinent Past Medical History: Yes Neurological History: No Pertinent History ENT History: No Pertinent History Cardiac History: No Pertinent History Respiratory History: No Pertinent History Endocrine Medical History: No Pertinent History Musculoskeletal History: No Pertinent History GI Medical History: No Pertinent History History: No Pertinent History Psycho-Social History: Anxiety, Depression Female Reproductive Disorders: No Pertinent History - Past Surgical History Past Surgical History: Yes Neuro Surgical History: No Pertinent History Cardiac: No Pertinent History Respiratory: No Pertinent History Gastrointestinal: No Pertinent History Genitourinary: No Pertinent History Musculoskeletal: No Pertinent History Female Surgical History: Section - Social History Smoking Status: Current every day smoker How long have you smoked: 9 yrs Exposure to second hand smoke: Yes Drug Use: none Patient Lives Alone: No - Female History Hx Last Menstrual Period: nexplanon- irreg Hx Now: No - Nursing Vital Signs Nursing Vital Signs: Initial Vital Signs Temperature 98.5 F 02/02/20 01:53 Pulse Rate 67 02/02/20 01:53 Respiratory Rate 16 02/02/20 01:53 Blood Pressure 137/73 02/02/20 01:53 O2 Sat by Pulse Oximetry 97 02/02/20 01:53 Pain Scale Pain Intensity 4 - Physical Exam General Appearance: no apparent distress Eye Exam: PERRL/EOMI, eyes nml inspection Ears, Nose, Throat Exam: normal ENT inspection, pharyngeal erythema (Drainage at back of throat) Respiratory Exam: normal breath sounds, lungs clear, No chest tenderness Cardiovascular Exam: regular rate/rhythm, normal heart sounds Gastrointestinal/Abdomen Exam: soft, normal bowel sounds, No tenderness, No distention, No guarding Back Exam: normal inspection, normal range of motion Extremity Exam: normal inspection, normal range of motion Neurologic Exam: alert, oriented x 3, cooperative Skin Exam: normal color SpO2 Interpretation: normal SpO2: 97 O2 Delivery: Room Air - Course Nursing assessment & vital signs reviewed: Yes Ordered Tests: Medication Summary Discontinued Medications Generic Name Dose Route Start Last Admin Trade Name Freq PRN Reason Stop Dose Admin Magnesium Hydroxide 45 ml 02/02/20 02:12 Gi Cocktail 45 Ml (Maalox/Lidocaine) PO 02/02/20 02:13 STAT ONE - Progress Progress: improved Progress Note: 02/02/20 02:28 Given GI cocktail, on reevaluation feeling better. I believe patient has acid reflux with esophagitis. I will start her on Prilosec. Outpatient follow-up. 02/02/20 02:19 Counseled pt/family regarding: diagnosis, need for follow-up, smoking cessation - Departure Departure Disposition: Home Clinical Impression: GERD with esophagitis Condition: Stable Critical Care Time: No Referrals: GAVI ARORA [Primary Care Provider] - Follow Up with PCP/3 days Instructions: Acid Reflux (Gastroesophageal Reflux Disease), Adult (DC) Additional Instructions: Do not smoke. Take Prilosec regularly. Follow-up with your primary care physician for reevaluation. Return to ER for any worsening. Prescriptions: Omeprazole Magnesium [Prilosec Otc] 20 mg PO BID #30 tablet.
[2020-02-02 02:37] VITALS: BP 132/72; PULSE 69
== END 2020-02-02 02:37 | disposition home or self-care (01) ==
LOC: ED 01:48
DX: K21.0 Gastro-esophageal reflux disease with esophagitis (principal)
CPT/HCPCS: 99283; A9270-GY

== ENCOUNTER 2020-05-23 16:52 | Emergency (ER) | payer OTHER ==
[2020-05-23] MEDS ORDERED: Hydromorphone 1 mg/ml Ampule IV ONE (17:38)
[2020-05-23] MEDS ORDERED: ZOFRAN ODT 4 MG PO ONE (17:38)
[2020-05-23] MEDS ORDERED: Sodium Chloride 0.9% 1000 ML 1,000 ML IV STA (17:38)
[2020-05-23] MEDS ORDERED: Zofran 4 MG/2 ML VIAL IV ONE (17:42)
[2020-05-23] MEDS ORDERED: Hydromorphone 1 mg/ml Ampule ONE (17:43)
[2020-05-23] MEDS ORDERED: Zofran 4 MG/2 ML VIAL ONE (17:43)
[2020-05-23] MEDS ORDERED: Sodium Chloride 0.9% 1000 ML 1,000 ML ONE (17:44)
[2020-05-23 18:01] LABS: Absolute Neutrophil Ct (ANC) 4.49 (1.4-6.9); BASOPHIL % 0.2 % (0.0-0.4); Basophil (Absolute #) 0.02 (0-0.4); Eosinophil % 1.3 % (0.00-5.0); Eosinophil (Absolute #) 0.11 (0-0.5); Hematocrit 40.2 % (35-47); Hemoglobin 13.3 gm/dl (12.0-16.0); Lymphocyte (Absolute #) 3.22 (1.0-4.6); Lymphocytes % 37.9 % (24.0-44.0); Mean Cell Volume 89.3 fl (78-100); Mean Corpuscular Hemoglobin 29.6 pg (26-32); Mean Corpuscular Hgb Concent. 33.1 g/dl (32-36); Mean Platelet Volume 11.3 fl (7.5-11.0); Monocyte (Absolute #) 0.66 (0.0-1.3); Monocytes % 7.8 % (0.0-12.0); Neutrophil % 52.8 % (36.0-66.0); Platelet Count 270 K/mm3 (150-450); Red Cell Distribution Width 13.3 % (11.5-14.0); White Blood Count 8.5 K/mm3 (4.0-10.5)
[2020-05-23 18:09] LABS: Appearance CLEAR (CLEAR); Bilirubin NEGATIVE (NEGATIVE); Blood NEGATIVE Ery/ul (0-5); Epithelial Cells RARE /HPF (FEW); Glucose NEGATIVE (NEGATIVE); Ketones NEGATIVE (NEGATIVE); Leukocyte Esterase NEGATIVE (NEGATIVE); Nitrite NEGATIVE (NEGATIVE); Protein,Urine Dip NEGATIVE (Negative); Specific Gravity 1.013 (1.005-1.025); Urobilinogen NEGATIVE mg/dL (0-1)
[2020-05-23 18:14] LABS: ALBUMIN 4.9 g/dL (3.5-5.0); ALKALINE PHOSPHATASE 65 U/L (38-126); ANION GAP 14.3 MEQ/L (5-15); BLOOD UREA NITROGEN 11 mg/dL (7-17); CHLORIDE 111 mmol/L (98-107); Carbon Dioxide 18 mmol/L (22-30); Creatinine 1 0.59 mg/dL (0.52-1.04); Glucose 99 mg/dL (74-106); LIPASE 69 U/L (23-300); Potassium 3.7 mmol/L (3.5-5.1); SGOT/AST 22 U/L (14-36); SGPT/ALT 17 U/L (0-35); SODIUM 139 mmol/L (137-145)
--- NOTE | 2020-05-23 18:18 | ERPHSYRPT ---
- History of Present Illness Historian: patient Exam Limitations: no limitations Patient Subjective Stated Complaint: pt reports abd pain with cramping for 4 days, states she called [facility] and they stated the symptoms may be related to her Nexplanon control implant placed in September 2019. pt reports that she has also had some light spotting for the last 1.5 weeks. pt reports nausea, no vomiting today but has vomited 2 days ago. Triage Nursing Assessment: pt is aox3, appears in pain, pupils perrl, resps easy and non labored, radial pulses strong and equal, cap refill < 3 seconds, abd soft tender diffusely, bowel sounds present normoactive x4, pt skin pink warm dry. Timing/Duration: today Activities at Onset: none Quality: sharpness Abdominal Pain Onset Location: generalized abdomen Pain Radiation: back Severity of Pain-Max: moderate Severity of Pain-Current: moderate Modifying Factors: Improves With: nothing Associated Symptoms: denies symptoms, No diarrhea, No fever/chills, No loss of appetite, No nausea, No vomiting Previous symptoms: no prior history Hx Tetanus, Diphtheria Vaccination/Date Given: Yes Hx Influenza Vaccination/Date Given: Yes Hx Pneumococcal Vaccination/Date Given: No Immunizations Up to Date: Yes <VIJAY GREGORY - Last Filed: 05/23/20 19:01> <YOLIS SALGADO - Last Filed: 05/23/20 19:27> - History of Present Illness Time Seen by Provider: 05/23/20 17:11 Physician History: This Is a 20-year-old patient presenting to the ED with abdominal pain for the past 1-1/2 hours -States that she has had abdominal cramping for the past 4 to 5 days associated with some vomiting twice a day. She states that she is also had vaginal spotting. Denies any vaginal discharge -States about 1-1/2 hours ago she was walking when she felt the abdominal pain starting in the epigastric area and then spread out throughout her abdomen-the pain at 8/10, constant sharp pain, with no aggravating or relieving factors, radiating to her back. -Denies any vomiting today -Also denies fever/shortness of breath/urinary symptoms. Is having normal bowel movements -Patient has a Nexplanon and does not get regular menstrual cycles -If sexually active, does not know if she is -States she tested negative for COVID 2 days ago (VIJAY GREGORY) Allergies/Adverse Reactions: No Known Drug Allergies Allergy (Verified 05/23/20 17:25) Home Medications: No Reportable Medications [No Reported Medications] 05/23/20 [History] Travel Risk - International Travel Have you traveled outside of the country in past 3 weeks: No - Coronavirus Screening Are you exhibiting any of the following symptoms?: No Close contact with a COVID-19 positive Pt in past 14-21 Days: No <VIJAY GREGORY - Last Filed: 05/23/20 19:01> - Review of Systems Constitutional: No Symptoms Eyes: No Symptoms Ears, Nose, & Throat: No Symptoms Respiratory: No Symptoms Cardiac: No Symptoms Abdominal/Gastrointestinal: Abdominal Pain, Vomiting Genitourinary Symptoms: Other (spotting) Musculoskeletal: No Symptoms Skin: No Symptoms Neurological: No Symptoms Psychological: No Symptoms Endocrine: No Symptoms All Other Systems: Reviewed and Negative <VIJAY GREGORY - Last Filed: 05/23/20 19:01> - Past Medical History Pertinent Past Medical History: Yes Neurological History: No Pertinent History ENT History: No Pertinent History Cardiac History: No Pertinent History Respiratory History: No Pertinent History Endocrine Medical History: No Pertinent History Musculoskeletal History: No Pertinent History GI Medical History: No Pertinent History History: No Pertinent History Psycho-Social History: Anxiety, Depression Female Reproductive Disorders: No Pertinent History Other Medical History: 2 healthy pregnancies - Past Surgical History Past Surgical History: Yes Neuro Surgical History: No Pertinent History Cardiac: No Pertinent History Respiratory: No Pertinent History Gastrointestinal: No Pertinent History Genitourinary: No Pertinent History Musculoskeletal: No Pertinent History Female Surgical History: Section - Social History Smoking Status: Current every day smoker How long have you smoked: 9 yrs Exposure to second hand smoke: Yes Drug Use: marijuana Patient Lives Alone: No - Female History Hx Last Menstrual Period: 05/23/20 Hx Now: (unk) <VIJAY GREGORY - Last Filed: 05/23/20 19:01> - Physical Exam General Appearance: mild distress Eye Exam: PERRL/EOMI, eyes nml inspection Ears, Nose, Throat Exam: normal ENT inspection, TMs normal, pharynx normal Neck Exam: normal inspection, non-tender, supple, full range of motion Respiratory Exam: normal breath sounds, lungs clear, No chest tenderness Cardiovascular Exam: regular rate/rhythm, normal heart sounds Gastrointestinal/Abdomen Exam: soft, normal bowel sounds, No tenderness Rectal Exam: deferred Back Exam: normal inspection, No CVA tenderness Extremity Exam: normal inspection, normal range of motion Neurologic Exam: alert, oriented 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, 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, 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 Skin Exam: normal color, warm, dry SpO2: 100 O2 Delivery: Room Air <VIJAY GREGORY - Last Filed: 05/23/20 19:01> - Nursing Vital Signs Nursing Vital Signs: Initial Vital Signs Pulse Rate 58 L 05/23/20 17:14 Respiratory Rate 22 05/23/20 17:14 Blood Pressure 151/93 05/23/20 17:14 O2 Sat by Pulse Oximetry 100 05/23/20 17:14 Pain Scale Pain Intensity 4 Ordered Tests: Active Orders 24 hr Category Date Time Status IV Insertion STAT Care 05/23/20 17:38 Active ABDOMEN AND PELVIS W/0 CONTRAS [CT] Stat Exams 05/23/20 17:39 Taken PELVIS TRANS VAGINAL [US] Stat Exams 05/23/20 18:21 Ordered CBC W DIFF Stat Lab 05/23/20 17:38 Completed CMP Stat Lab 05/23/20 17:38 Completed HCG QUALITATIVE,SERUM Stat Lab 05/23/20 17:38 Completed LIPASE Stat Lab 05/23/20 17:38 Completed UA W/RFX UR CULTURE Stat Lab 05/23/20 17:41 Completed Medication Summary Discontinued Medications Generic Name Dose Route Start Last Admin Trade Name Greyq PRN Reason Stop Dose Admin Hydromorphone HCl 0.5 mg 05/23/20 17:38 05/23/20 17:47 Hydromorphone 1 Mg/Ml Ampule IV 05/23/20 17:39 0.5 mg STAT ONE Administration Hydromorphone HCl Confirm 05/23/20 17:43 Hydromorphone 1 Mg/Ml Ampule Administered 05/23/20 17:44 Dose 1 mg .ROUTE .STK-MED ONE Sodium Chloride 1,000 mls @ 999 mls/hr 05/23/20 17:38 05/23/20 19:02 Sodium Chloride 0.9% 1000 Ml IV 05/23/20 18:38 Infused .Q1H1M STA Infusion Sodium Chloride Confirm 05/23/20 17:44 Sodium Chloride 0.9% 1000 Ml Administered 05/23/20 17:45 Dose 1,000 mls @ ud .ROUTE .STK-MED ONE Ondansetron HCl 4 mg 05/23/20 17:38 05/23/20 17:42 Zofran Odt 4 Mg PO 05/23/20 17:39 Not Given STAT ONE Ondansetron HCl 4 mg 05/23/20 17:42 05/23/20 17:47 Zofran 4 Mg/2 Ml Vial IV 05/23/20 17:43 4 mg STAT ONE Administration Ondansetron HCl Confirm 05/23/20 17:43 Zofran 4 Mg/2 Ml Vial Administered 05/23/20 17:44 Dose 4 mg .ROUTE .STK-MED ONE Lab/Rad Data: Laboratory Result Diagrams 05/23/20 17:38 05/23/20 17:38 Laboratory Results 05/23/20 05/23/20 05/23/20 Range/Units 17:41 17:38 17:38 WBC (4.0-10.5) K/mm3 RBC (4.1-5.4) M/mm3 Hgb (12.0-16.0) gm/dl Hct (35-47) % MCV (78-100) fl MCH (26-32) pg MCHC (32-36) g/dl RDW (11.5-14.0) % Plt Count (150-450) K/mm3 MPV (7.5-11.0) fl Gran % (36.0-66.0) % Eos # (Auto) (0-0.5) Absolute Lymphs (auto) (1.0-4.6) Absolute Monos (auto) (0.0-1.3) Lymphocytes % (24.0-44.0) % Monocytes % (0.0-12.0) % Eosinophils % (0.00-5.0) % Basophils % (0.0-0.4) % Absolute Granulocytes (1.4-6.9) Basophils # (0-0.4) Sodium 139 (137-145) mmol/L Potassium 3.7 (3.5-5.1) mmol/L Chloride 111 H (98-107) mmol/L Carbon Dioxide 18 L (22-30) mmol/L Anion Gap 14.3 (5-15) MEQ/L BUN 11 (7-17) mg/dL Creatinine 0.59 (0.52-1.04) mg/dL Estimated GFR > 60.0 ML/MIN Glucose 99 (74-106) mg/dL Calcium 10.0 (8.4-10.2) mg/dL Total Bilirubin 0.30 (0.2-1.3) mg/dL AST 22 (14-36) U/L ALT 17 (0-35) U/L Alkaline Phosphatase 65 (38-126) U/L Serum Total Protein 8.0 (6.3-8.2) g/dL Albumin 4.9 (3.5-5.0) g/dL Lipase 69 (23-300) U/L Serum , Qual NEGATIVE (Negative) Urine Color STRAW (YELLOW) Urine Appearance CLEAR (CLEAR) Urine pH 7.0 (5-6) Ur Specific [place] 1.013 (1.005-1.025) Urine Protein NEGATIVE (Negative) Urine Ketones NEGATIVE (NEGATIVE) Urine Blood NEGATIVE (0-5) Isaac/ul Urine Nitrite NEGATIVE (NEGATIVE) Urine Bilirubin NEGATIVE (NEGATIVE) Urine Urobilinogen NEGATIVE (0-1) mg/dL Ur Leukocyte Esterase NEGATIVE (NEGATIVE) Urine WBC (Auto) NONE (0-5) /HPF Urine RBC (Auto) NONE (0-2) /HPF U Epithel Cells (Auto) RARE (FEW) /HPF Urine Bacteria (Auto) NONE (NEGATIVE) /HPF Urine Culture Reflexed NO (NO) Urine Glucose NEGATIVE (NEGATIVE) mg/dL 05/23/20 Range/Units 17:38 WBC 8.5 (4.0-10.5) K/mm3 RBC 4.50 (4.1-5.4) M/mm3 Hgb 13.3 (12.0-16.0) gm/dl Hct 40.2 (35-47) % MCV 89.3 (78-100) fl MCH 29.6 (26-32) pg MCHC 33.1 (32-36) g/dl RDW 13.3 (11.5-14.0) % Plt Count 270 (150-450) K/mm3 MPV 11.3 H (7.5-11.0) fl Gran % 52.8 (36.0-66.0) % Eos # (Auto) 0.11 (0-0.5) Absolute Lymphs (auto) 3.22 (1.0-4.6) Absolute Monos (auto) 0.66 (0.0-1.3) Lymphocytes % 37.9 (24.0-44.0) % Monocytes % 7.8 (0.0-12.0) % Eosinophils % 1.3 (0.00-5.0) % Basophils % 0.2 (0.0-0.4) % Absolute Granulocytes 4.49 (1.4-6.9) Basophils # 0.02 (0-0.4) Sodium (137-145) mmol/L Potassium (3.5-5.1) mmol/L Chloride (98-107) mmol/L Carbon Dioxide (22-30) mmol/L Anion Gap (5-15) MEQ/L BUN (7-17) mg/dL Creatinine (0.52-1.04) mg/dL Estimated GFR ML/MIN Glucose (74-106) mg/dL Calcium (8.4-10.2) mg/dL Total Bilirubin (0.2-1.3) mg/dL AST (14-36) U/L ALT (0-35) U/L Alkaline Phosphatase (38-126) U/L Serum Total Protein (6.3-8.2) g/dL Albumin (3.5-5.0) g/dL Lipase (23-300) U/L Serum , Qual (Negative) Urine Color (YELLOW) Urine Appearance (CLEAR) Urine pH (5-6) Ur Specific [place] (1.005-1.025) Urine Protein (Negative) Urine Ketones (NEGATIVE) Urine Blood (0-5) Isaac/ul Urine Nitrite (NEGATIVE) Urine Bilirubin (NEGATIVE) Urine Urobilinogen (0-1) mg/dL Ur Leukocyte Esterase (NEGATIVE) Urine WBC (Auto) (0-5) /HPF Urine RBC (Auto) (0-2) /HPF U Epithel Cells (Auto) (FEW) /HPF Urine Bacteria (Auto) (NEGATIVE) /HPF Urine Culture Reflexed (NO) Urine Glucose (NEGATIVE) mg/dL <VIJAY GREGORY - Last Filed: 05/23/20 19:01> - Progress Progress: improved Counseled pt/family regarding: lab results, diagnosis, need for follow-up, rad results <YOLIS SALGADO - Last Filed: 05/23/20 19:27> - Progress Progress Note: 05/23/20 18:18 This is a 20-year-old patient presented to ED for evaluation of abdominal pain She was seen and evaluated in ED room 9 Vital signs stable on arrival Labs ordered: CBC, CMP, UA, lipase, hcg Results: ALL labs WNL. HCG negative Imaging:CT abdomen and pelvis without contrast, TV USG Medications/fluids :IVF bolus, zofran 4mg IV, IV dilaudid 0.5mg 05/23/20 18:21 05/23/20 18:51 05/23/20 18:58 At this time care has been handed over to (VIJAY BELTRAN) 05/23/20 19:10 abdominal pain improved, doing better (YOLIS SALGADO) <VIJAY GREGORY - Last Filed: 05/23/20 19:01> - Departure Departure Disposition: Home Critical Care Time: Yes Critical Care Time(excluding separately billable procedures): Critical 30-74 mins <YOLIS SALGADO - Last Filed: 05/23/20 19:27> - Departure Clinical Impression: Abdominal bloating with cramps Condition: Stable Referrals: GAVI ARORA [Primary Care Provider] - Instructions: Acute Abdomen (Belly Pain) Additional Instructions: Discharge/Care Plan LIZET GUAJARDO was seen on 05/23/20 in the Emergency Room. The patient was counseled regarding Diagnosis,Lab results, Imaging studies, need for follow up and when to return to the Emergency Room. Prescriptions given: Discharge Note I have spoken with the patient and/or caregivers. I have explained the patient's condition, diagnosis and treatment plan based on the information available to me at this time. I have answered the patient's and/or caregiver's questions and addressed any concerns. The patient and/or caregivers have as good understanding of the patient's diagnosis, condition and treatment plan as can be expected at this point. The vital signs have been stable. The patient's condition is stable and appropriate for discharge from the emergency department. The patient will pursue further outpatient evaluation with the primary care physician or other designated or consulting physician as outlined in the discharge instructions. The patient and/or caregivers are agreeable to this plan of care and follow-up instructions have been explained in detail. The patient and/or caregivers have received these instruction. The patient/and or caregivers are aware that any significant change in condition or worsening of symptoms should prompt an immediate return to this or the closest emergency department or call 911. LIZET GUAJARDO was seen on 05/23/20 n the Emergency Room. At that time you were treated for an emergent condition, during your visit Laboratory, Radiology and/or other procedures may have been ordered. It is very important that you follow-up with your Primary Care Physician GAVI ARORA within the next 24-48 hours to review your Emergency Room visit and the final results of testing that was ordered. Some test results such as Urine Cultures, Blood Cultures, and other cultures if ordered will not be finalized for 24-48 hours. If you do not have a Primary Care Provider please call the medical records department at [phone] ext [phone] to obtain a copy of your results or you may sign into our patient portal to obtain these results by visiting us @ [email or web address] and completing the following steps: 1. Click on the Patient Portal link 2. Click the Patient Self Enrollment Link to complete the enrollment form and entering your 3. Once the enrollment form is completed you will receive an email with a temporary ID and password at the email address you provided. 4. Next choose a user name and password. Your user name must be at least 4 characters long and your password must be at least 4 characters long. 5. Choose a security question from the list and provide your answer to the question. If you already have signed into the Health Portal you may access your Health Care Information 30/05 by the following steps: 1. Login to our website @ [email or web address] 2. Enter your original user name and password. FAQS The [facility] Health Portal is an online tool that contains your Lab Results, Radiology Reports, Visit History, Discharge Instructions and Health Summary Lab and Radiology Results will not be available for 72 hours on the portal. The Portal is a secure site, passwords are encryted and URLs are re-written so they cannot be copied and pasted. You and authorized family members are the only ones who can access your Portal. Also there is a timeout feature that protects your information if you leave the Portal page open. If you have technical difficulty please use the Contact Us link on the page this will allow you to submit any questions you have regarding the Portal or you may contact the Medical Record Department at [phone] ext [phone].
[2020-05-23 19:28] VITALS: BP 138/68; PULSE 76; O2SAT 99
--- NOTE | 2020-05-24 07:44 | XRAY ---
Indication: Abdomen pain 2 days. Pelvic cramping and bleeding 1.5 weeks. Multiple contiguous axial images obtained through the abdomen and pelvis without contrast as ordered. Comparison: None Lung bases are clear. Heart is not enlarged. Noncontrasted stomach and bowel loops appear nonobstructed. Normal appendix. No free fluid/air. Nonobstructing punctate right renal calculus. Remaining liver, gallbladder, pancreas, spleen, adrenal glands, kidneys, ureters, bladder, uterus, and aorta appear unremarkable for noncontrast exam. Osseous structures intact. No ventral or inguinal hernias. Impression: 1. Nonobstructing right renal punctate calculus. 2. Remaining CT abdomen/pelvis without contrast exam is negative.
--- NOTE | 2020-05-24 07:46 | XRAY ---
Indication: Spotting and cramping. Two-dimensional transvaginal pelvic sonogram performed. Comparison: None Uterus anteverted measuring 7.4 x 2.5 x 4.2 cm. Myometrium appears homogeneous in echogenicity. Endometrial stripe measures 3.2 mm. No endometrial cavity mass or fluid collection. Right ovary measures 2.8 x 1.7 x 1.5 cm and the left measures 2.6 x 1.7 x 2.1 cm. Normal follicular cysts and perfusion bilaterally. No suspicious adnexal mass or free fluid. Impression: Negative transvaginal pelvic sonogram. Comment: Preliminary report was given.
== END 2020-05-23 19:37 | disposition home or self-care (01) ==
LOC: ED 16:52
DX: R10.9 Unspecified abdominal pain (principal); R11.11 Vomiting without nausea; N93.9 Abnormal uterine and vaginal bleeding, unspecified; F17.210 Nicotine dependence, cigarettes, uncomplicated; F12.90 Cannabis use, unspecified, uncomplicated
CPT/HCPCS: 36000; 36415; 74176; 76830; 80053; 81001; 81025; 83690; 85025; 96374; 96375; 99284; 99291; J1170; J2405

== ENCOUNTER 2021-03-10 15:27 | Emergency (ER) | payer OTHER ==
--- NOTE | 2021-03-10 15:37 | ERPHSYRPT ---
- History of Present Illness Time Seen by Provider: 03/10/21 15:36 Source: patient Exam Limitations: no limitations Physician History: This is a 21-year-old white female who was walking at her home when she turned and her right foot and ankle twisted. She began having significant pain. She then came to the emergency department Method of Injury: twisted Occurred: just prior to arrival Quality: aching Severity of Pain-Max: mild Severity of Pain-Current: mild Lower Extremities Pain: foot: right, ankle: right Modifying Factors: Improves With: movement Associated Symptoms: other (Hurts to bear weight but can do so.) Allergies/Adverse Reactions: No Known Drug Allergies Allergy (Verified 03/10/21 15:39) Home Medications: Ethinyl Estradiol/Drospirenone [Loryna 3 mg-0.02 mg Tablet] 1 ea DAILY 03/10/21 [History] Hx Tetanus, Diphtheria Vaccination/Date Given: Yes Hx Influenza Vaccination/Date Given: Yes Hx Pneumococcal Vaccination/Date Given: No Travel Risk - International Travel Have you traveled outside of the country in past 3 weeks: No - Coronavirus Screening Are you exhibiting any of the following symptoms?: No Close contact with a COVID-19 positive Pt in past 14-21 Days: No - Vaccine Status Have you recieved a Covid-19 vaccination: No - Review of Systems Constitutional: No Symptoms Eyes: No Symptoms Ears, Nose, & Throat: No Symptoms Abdominal/Gastrointestinal: No Symptoms Genitourinary Symptoms: No Symptoms Musculoskeletal: Injury (Right foot and ankle) Skin: No Symptoms Neurological: No Symptoms Psychological: No Symptoms Endocrine: No Symptoms Hematologic/Lymphatic: No Symptoms Immunological/Allergic: No Symptoms All Other Systems: Reviewed and Negative - Past Medical History Pertinent Past Medical History: Yes Neurological History: No Pertinent History ENT History: No Pertinent History Cardiac History: No Pertinent History Respiratory History: No Pertinent History Endocrine Medical History: No Pertinent History Musculoskeletal History: No Pertinent History GI Medical History: No Pertinent History History: No Pertinent History Psycho-Social History: Anxiety, Depression Female Reproductive Disorders: No Pertinent History Other Medical History: 2 healthy pregnancies - Past Surgical History Past Surgical History: Yes Neuro Surgical History: No Pertinent History Cardiac: No Pertinent History Respiratory: No Pertinent History Gastrointestinal: No Pertinent History Genitourinary: No Pertinent History Musculoskeletal: No Pertinent History Female Surgical History: Section - Social History Smoking Status: Current every day smoker How long have you smoked: 9 yrs Exposure to second hand smoke: Yes Drug Use: marijuana Patient Lives Alone: No - Nursing Vital Signs Nursing Vital Signs: Initial Vital Signs Temperature 97.0 F 03/10/21 15:35 Pulse Rate 70 03/10/21 15:35 Respiratory Rate 16 03/10/21 15:35 Blood Pressure 154/92 03/10/21 15:35 O2 Sat by Pulse Oximetry 96 03/10/21 15:35 Pain Scale Pain Intensity 7 - Physical Exam General Appearance: no apparent distress, alert, anxiety Eyes, Ears, Nose, Throat Exam: normal ENT inspection, moist mucous membranes Neck Exam: normal inspection, non-tender, supple, full range of motion Cardiovascular/Respiratory Exam: chest non-tender, no respiratory distress Gastrointestinal/Abdominal Exam: non-tender Back Exam: normal inspection, normal range of motion, No CVA tenderness, No vertebral tenderness Hips Exam: bilateral: non-tender, normal inspection, normal range of motion, no evidence of injury Legs Exam: bilateral leg: non-tender, normal inspection, normal range of motion, no evidence of injury Knees Exam: bilateral knee: non-tender, normal inspection, normal range of motion, no evidence of injury Ankle Exam: right ankle: pain, soft tissue tenderness, left ankle: non-tender, normal inspection, no evidence of injury, bilateral ankle: normal range of motion Foot Exam: right foot: pain, soft tissue tenderness, left foot: non-tender, normal inspection, no evidence of injury, bilateral foot: normal range of motion Neuro/Tendon Exam: normal sensation, normal motor functions, normal tendon functions, responds to pain Mental Status Exam: alert, oriented x 3, cooperative Skin Exam: normal color, warm, dry SpO2 Interpretation: normal O2 Delivery: Room Air - Course Nursing assessment & vital signs reviewed: Yes Ordered Tests: Active Orders 24 hr Category Date Time Status ANKLE (3 VIEWS) Stat Exams 03/10/21 15:54 Ordered FOOT (MINIMUM 3 VIEWS) Stat Exams 03/10/21 15:54 Ordered - Progress Progress: unchanged, pain not gone completely, re-examined Progress Note: 03/10/21 16:24 X-ray of right ankle reveals no evidence of any acute fracture or dislocation X-ray of the right foot reveals no evidence of any acute fracture or dislocation Counseled pt/family regarding: diagnosis, need for follow-up, rad results - Departure Departure Disposition: Home Clinical Impression: Sprain and strain of ankle Condition: Stable Critical Care Time: No Referrals: GAVI EVANS [Primary Care Provider] - Additional Instructions: Ice pack to area of tenderness 3 times a day for 48 hours. May use Tylenol and ibuprofen for pain control. If pain persists beyond 2 to 3 days, follow-up with [facility] orthopedic clinic or your primary care physician for further man agement.
[2021-03-10 16:27] VITALS: BP 142/73; PULSE 72; O2SAT 97
--- NOTE | 2021-03-10 16:29 | XRAY ---
Indication: Pain following twisting injury. Comparison: None 3 view right ankle obtained. No bony, articular, or soft tissue abnormalities.
--- NOTE | 2021-03-10 16:29 | XRAY ---
Indication: Pain following twisting injury. Comparison: None 3 nonweightbearing views right foot obtained. No bony, articular, or soft tissue abnormalities.
== END 2021-03-10 16:34 | disposition home or self-care (01) ==
LOC: ED 15:27
DX: S93.401A Sprain of unspecified ligament of right ankle, initial encounter (principal); X50.1XXA Overexertion from prolonged static or awkward postures, initial encounter; Y93.01 Activity, walking, marching and hiking; Y92.89 Other specified places as the place of occurrence of the external cause
CPT/HCPCS: 73610; 73630; 99284

== ENCOUNTER 2022-03-11 21:06 | Emergency (ER) | payer OTHER ==
[2022-03-11] MEDS ORDERED: Sodium Chloride 0.9% 1000 ML 1,000 ML IV STA (23:09)
--- NOTE | 2022-03-11 23:11 | ERPHSYRPT ---
- History of Present Illness Time Seen by Provider: 03/11/22 22:50 Source: patient Exam Limitations: no limitations Patient Subjective Stated Complaint: Patient is c/o dizziness that started around 6pm tonight. She denies any pain, falls, or head trauma. She states she gets weak, sees spots, becomes dizzy, and thinks she is going to pass out but has not passed out. Patient reports that she has had a lot of N/V associated with her recently. No fever. Triage Nursing Assessment: Patient ambulated back to ED without difficulties. No SOB noted. Alert and oriented and answering questions appropriately. NO weakness noted during ambulation in room. STEVEN LAROSEL. Denies any pain, cramping, bleeding. She is 11 weeks . Physician History: Patient is a 22-year-old female currently 11 weeks presents to our ED for evaluation of ongoing nausea and vomiting that has been progressive. Patient is now experiencing some dizziness and near syncopal episodes. Patient denies syncope. No associated chest pain or shortness of breath. Patient states she occasionally sees spots in her visual field. She feels weak. Symptoms are mild to moderate in intensity. No specific worsening improving factors. Patient otherwise healthy. She voices no other complaints or concerns at this time. Timing/Duration: today (Symptoms started today at 6 PM.) Severity: moderate Modifying Factors: Improves With: nothing Associated Symptoms: denies symptoms Allergies/Adverse Reactions: No Known Drug Allergies Allergy (Verified 03/11/22 22:46) Hx Tetanus, Diphtheria Vaccination/Date Given: Yes Hx Influenza Vaccination/Date Given: No Hx Pneumococcal Vaccination/Date Given: No Immunizations Up to Date: Yes Travel Risk - International Travel Have you traveled outside of the country in past 3 weeks: No - Coronavirus Screening Are you exhibiting any of the following symptoms?: No Close contact with a COVID-19 positive Pt in past 14-21 Days: No - Vaccine Status Have you recieved a Covid-19 vaccination: Yes [employer]: [employer] - Vaccination Dates Date of 2cond Vaccination (if applicable): 2020 - Review of Systems Constitutional: No Symptoms, No Fever, No Chills Eyes: No Symptoms Ears, Nose, & Throat: No Symptoms Respiratory: No Symptoms, No Cough, No Dyspnea Cardiac: No Symptoms, No Chest Pain, No Edema, No Syncope Abdominal/Gastrointestinal: No Symptoms, No Abdominal Pain, No Nausea, No Vomiting, No Diarrhea Genitourinary Symptoms: No Symptoms, No Dysuria Musculoskeletal: No Symptoms, No Back Pain, No Neck Pain Skin: No Symptoms, No Rash Neurological: No Symptoms, No Dizziness, No Focal Weakness, No Sensory Changes Psychological: No Symptoms Endocrine: No Symptoms Hematologic/Lymphatic: No Symptoms Immunological/Allergic: No Symptoms All Other Systems: Reviewed and Negative - Past Medical History Pertinent Past Medical History: Yes Neurological History: No Pertinent History ENT History: No Pertinent History Cardiac History: No Pertinent History Respiratory History: No Pertinent History Endocrine Medical History: No Pertinent History Musculoskeletal History: No Pertinent History GI Medical History: No Pertinent History History: No Pertinent History Psycho-Social History: Anxiety, Depression Female Reproductive Disorders: No Pertinent History Other Medical History: HX OF DEPRESSION BUT PATIENT REPORTS DOESN'T TAKE MEDS R EGULARLY. RECENT XRAY OF SPINE NEGATIVE - Past Surgical History Past Surgical History: Yes Neuro Surgical History: No Pertinent History Cardiac: No Pertinent History Respiratory: No Pertinent History Gastrointestinal: No Pertinent History Genitourinary: No Pertinent History Musculoskeletal: No Pertinent History Female Surgical History: Section - Social History Smoking Status: Current every day smoker How long have you smoked: 2 weeks Exposure to second hand smoke: No Drug Use: marijuana Patient Lives Alone: No (2 other children) - Female History Hx Now: Yes Expected Date of Delivery: 10/01/22 Gestational Age: 11 weeks - Nursing Vital Signs Nursing Vital Signs: Initial Vital Signs Temperature 98.3 F 03/11/22 22:47 Pulse Rate 73 03/11/22 22:47 Respiratory Rate 18 03/11/22 22:47 Blood Pressure 109/47 03/11/22 22:47 O2 Sat by Pulse Oximetry 95 03/11/22 22:47 Pain Scale Pain Intensity 0 - Physical Exam General Appearance: no apparent distress, alert Eye Exam: PERRL/EOMI, eyes nml inspection Ears, Nose, Throat Exam: normal ENT inspection, TMs normal, pharynx normal, moist mucous membranes Neck Exam: normal inspection, non-tender, supple, full range of motion Respiratory Exam: normal breath sounds, lungs clear, airway intact, No respiratory distress Cardiovascular Exam: regular rate/rhythm, normal heart sounds, normal peripheral pulses Gastrointestinal/Abdomen Exam: soft, normal bowel sounds, No tenderness, No mass Back Exam: normal inspection, normal range of motion, No CVA tenderness, No vertebral tenderness Extremity Exam: normal inspection, normal range of motion, pelvis stable Neurologic Exam: alert, oriented x 3, cooperative, normal mood/affect, nml cerebellar function, nml station & gait, sensation nml, No motor deficits Skin Exam: normal color, warm, dry, No rash Lymphatic Exam: No adenopathy SpO2 Interpretation: normal SpO2: 95 O2 Delivery: Room Air - Course Nursing assessment & vital signs reviewed: Yes EKG Interpreted by Me: RATE (73), Sinus Rhythm, NORMAL AXIS, NORMAL INTERVALS Ordered Tests: Active Orders 24 hr Category Date Time Status Occupational Therapy Co Director STAT Care 03/11/22 23:01 Active EKG-ER Only STAT Care 03/11/22 23:00 Active IV Insertion STAT Care 03/11/22 23:00 Active Pulse Oximetry (ED) STAT Care 03/11/22 23:00 Active CBC W DIFF Stat Lab 03/11/22 23:20 Completed CMP Stat Lab 03/11/22 23:20 Completed MAGNESIUM Stat Lab 03/11/22 23:20 Completed TROPONIN Q3H Lab 03/11/22 23:20 Completed TROPONIN Q3H Lab 03/12/22 02:15 Ordered TROPONIN Q3H Lab 03/12/22 05:15 Ordered TROPONIN Q3H Lab 03/12/22 08:15 Ordered TROPONIN Q3H Lab 03/12/22 11:15 Ordered UA W/RFX CULTURE Stat Lab 03/11/22 23:20 Completed Medication Summary Discontinued Medications Generic Name Dose Route Start Last Admin Trade Name Freq PRN Reason Stop Dose Admin Sodium Chloride 1,000 mls @ 999 mls/hr 03/11/22 23:09 03/12/22 00:27 Sodium Chloride 0.9% 1000 Ml IV 03/12/22 00:09 Infused .Q1H1M STA Infusion Sodium Chloride Confirm 03/11/22 23:13 Sodium Chloride 0.9% 1000 Ml Administered 03/11/22 23:14 Dose 1,000 mls @ ud .ROUTE .STK-MED ONE Ondansetron HCl 4 mg 03/12/22 01:17 03/12/22 01:19 Ondansetron Hcl 4 Mg/2 Ml Vial IV 03/12/22 01:18 4 mg STAT ONE Administration Ondansetron HCl Confirm 03/12/22 01:18 Ondansetron Hcl 4 Mg/2 Ml Vial Administered 03/12/22 01:19 Dose 4 mg .ROUTE .STK-MED ONE Lab/Rad Data: Laboratory Result Diagrams 03/11/22 23:20 03/11/22 23:20 Laboratory Results 03/11/22 03/11/22 03/11/22 Range/Units 23:20 23:20 23:20 WBC (4.0-10.5) K/mm3 RBC (4.1-5.4) M/mm3 Hgb (12.0-16.0) gm/dl Hct (35-47) % MCV (78-100) fl MCH (26-32) pg MCHC (32-36) g/dl RDW (11.5-14.0) % Plt Count (150-450) K/mm3 MPV (7.5-11.0) fl Gran % (36.0-66.0) % Eos # (Auto) (0-0.5) Absolute Lymphs (auto) (1.0-4.6) Absolute Monos (auto) (0.0-1.3) Lymphocytes % (24.0-44.0) % Monocytes % (0.0-12.0) % Eosinophils % (0.00-5.0) % Basophils % (0.0-0.4) % Absolute Granulocytes (1.4-6.9) Basophils # (0-0.4) Sodium 136 L (137-145) mmol/L Potassium 3.7 (3.5-5.1) mmol/L Chloride 104 (98-107) mmol/L Carbon Dioxide 21 L (22-30) mmol/L Anion Gap 14.6 (5-15) MEQ/L BUN 9 (7-17) mg/dL Creatinine 0.56 (0.52-1.04) mg/dL Estimated GFR > 60.0 ML/MIN Glucose 107 H (74-106) mg/dL Calcium 9.5 (8.4-10.2) mg/dL Magnesium 2.0 (1.6-2.3) mg/dL Total Bilirubin 0.20 (0.2-1.3) mg/dL AST 19 (14-36) U/L ALT 14 (0-35) U/L Alkaline Phosphatase 57 (38-126) U/L Troponin I < 0.012 (0.000-0.034) ng/mL Serum Total Protein 7.3 (6.3-8.2) g/dL Albumin 4.2 (3.5-5.0) g/dL Urinalys Dipstick Clnc MAIN LAB Urine Color DARK YELLOW (YELLOW) Urine Appearance CLEAR (CLEAR) Urine pH 6.0 (5-6) Ur Specific [place] >=1.030 (1.005-1.025) POC Urine Protein Conf 30 (Negative) Urine Ketones SMALL-15 (NEGATIVE) Urine Nitrite NEGATIVE (NEGATIVE) Urine Bilirubin SMALL (NEGATIVE) Urine Urobilinogen 0.2 (0-1) mg/dL Urine Leukocytes NEGATIVE (NEGATIVE) Urine WBC (Auto) 0-2 (0-5) /HPF Urine RBC (Auto) 3-5 (0-2) /HPF U Epithel Cells (Auto) RARE (FEW) /HPF Urine Bacteria (Auto) NONE (NEGATIVE) /HPF Urine RBC TRACE-INTACT (0-5) Isaac/ul Urine Mucus (Auto) MANY (NEGATIVE) /HPF Ur Culture Indicated? NO Urine Glucose NEGATIVE (NEGATIVE) mg/dL 03/11/22 Range/Units 23:20 WBC 11.1 H (4.0-10.5) K/mm3 RBC 4.07 L (4.1-5.4) M/mm3 Hgb 12.5 (12.0-16.0) gm/dl Hct 36.6 (35-47) % MCV 89.9 (78-100) fl MCH 30.7 (26-32) pg MCHC 34.2 (32-36) g/dl RDW 12.6 (11.5-14.0) % Plt Count 291 (150-450) K/mm3 MPV 10.2 (7.5-11.0) fl Gran % 72.7 H (36.0-66.0) % Eos # (Auto) 0.02 (0-0.5) Absolute Lymphs (auto) 2.23 (1.0-4.6) Absolute Monos (auto) 0.75 (0.0-1.3) Lymphocytes % 20.1 L (24.0-44.0) % Monocytes % 6.8 (0.0-12.0) % Eosinophils % 0.2 (0.00-5.0) % Basophils % 0.2 (0.0-0.4) % Absolute Granulocytes 8.06 H (1.4-6.9) Basophils # 0.02 (0-0.4) Sodium (137-145) mmol/L Potassium (3.5-5.1) mmol/L Chloride (98-107) mmol/L Carbon Dioxide (22-30) mmol/L Anion Gap (5-15) MEQ/L BUN (7-17) mg/dL Creatinine (0.52-1.04) mg/dL Estimated GFR ML/MIN Glucose (74-106) mg/dL Calcium (8.4-10.2) mg/dL Magnesium (1.6-2.3) mg/dL Total Bilirubin (0.2-1.3) mg/dL AST (14-36) U/L ALT (0-35) U/L Alkaline Phosphatase (38-126) U/L Troponin I (0.000-0.034) ng/mL Serum Total Protein (6.3-8.2) g/dL Albumin (3.5-5.0) g/dL Urinalys Dipstick Clnc Urine Color (YELLOW) Urine Appearance (CLEAR) Urine pH (5-6) Ur Specific [place] (1.005-1.025) POC Urine Protein Conf (Negative) Urine Ketones (NEGATIVE) Urine Nitrite (NEGATIVE) Urine Bilirubin (NEGATIVE) Urine Urobilinogen (0-1) mg/dL Urine Leukocytes (NEGATIVE) Urine WBC (Auto) (0-5) /HPF Urine RBC (Auto) (0-2) /HPF U Epithel Cells (Auto) (FEW) /HPF Urine Bacteria (Auto) (NEGATIVE) /HPF Urine RBC (0-5) Isaac/ul Urine Mucus (Auto) (NEGATIVE) /HPF Ur Culture Indicated? Urine Glucose (NEGATIVE) mg/dL - Progress Progress: improved Progress Note: Patient reassessed. She feels well. Patient asymptomatic. Vital stable. Nausea resolved. IV fluids infused. patient tolerated p.o. Patient states she is ready for discharge. [facility] for [facility] Patient denied pelvic pain and or discharge. Patient agrees to follow-up with primary care doctor within 48 hours for evaluation. Portions of this note were created with voice recognition technology. There may be grammatical, spelling, punctuation or sound alike errors 03/12/22 02:00 03/12/22 02:01 Counseled pt/family regarding: lab results, diagnosis, need for follow-up - Departure Departure Disposition: Home Clinical Impression: Hyponatremia, Dehydration, Nausea & vomiting Condition: Stable Critical Care Time: No Referrals: SOPHIA SRIVASTAVA, [employer] [Primary Care Provider] - Follow up/PCP as directed Additional Instructions: Discharge/Care Plan LIZET GUAJARDO was seen on 03/12/22 in the Emergency Room. The patient was counseled regarding Diagnosis,Lab results, Imaging studies, need for follow up and when to return to the Emergency Room. Prescriptions given: Discharge Note I have spoken with the patient and/or caregivers. I have explained the patient's condition, diagnosis and treatment plan based on the information available to me at this time. I have answered the patient's and/or caregiver's questions and addressed any concerns. The patient and/or caregivers have as good understanding of the patient's diagnosis, condition and treatment plan as can be expected at this point. The vital signs have been stable. The patient's condition is stable and appropriate for discharge from the emergency department. The patient will pursue further outpatient evaluation with the primary care physician or other designated or consulting physician as outlined in the discharge instructions. The patient and/or caregivers are agreeable to this plan of care and follow-up instructions have been explained in detail. The patient and/or caregivers have received these instruction. The patient/and or caregivers are aware that any significant change in condition or worsening of symptoms should prompt an immediate return to this or the closest emergency department or call 911. Prescriptions: Ondansetron ODT 4 MG [Zofran Odt 4 mg] 4 mg PO Q6H PRN PRN #10 tablet PRN Reason: Vomiting
[2022-03-11] MEDS ORDERED: Sodium Chloride 0.9% 1000 ML 1,000 ML ONE (23:13)
[2022-03-11 23:26] LABS: Absolute Neutrophil Ct (ANC) 8.06 (1.4-6.9); Basophil (Absolute #) 0.02 (0-0.4); Eosinophil % 0.2 % (0.00-5.0); Eosinophil (Absolute #) 0.02 (0-0.5); Hematocrit 36.6 % (35-47); Hemoglobin 12.5 gm/dl (12.0-16.0); Lymphocyte (Absolute #) 2.23 (1.0-4.6); Lymphocytes % 20.1 % (24.0-44.0); Mean Cell Volume 89.9 fl (78-100); Mean Corpuscular Hemoglobin 30.7 pg (26-32); Mean Corpuscular Hgb Concent. 34.2 g/dl (32-36); Mean Platelet Volume 10.2 fl (7.5-11.0); Monocyte (Absolute #) 0.75 (0.0-1.3); Monocytes % 6.8 % (0.0-12.0); Neutrophil % 72.7 % (36.0-66.0); Platelet Count 291 K/mm3 (150-450); Red Blood Count 4.07 M/mm3 (4.1-5.4); Red Cell Distribution Width 12.6 % (11.5-14.0); White Blood Count 11.1 K/mm3 (4.0-10.5)
[2022-03-11 23:27] LABS: Appearance CLEAR (CLEAR); Bilirubin SMALL (NEGATIVE); Dipstick done @ ? MAIN LAB; Glucose NEGATIVE (NEGATIVE); Ketones SMALL-15 (NEGATIVE); Nitrite NEGATIVE (NEGATIVE); Protein,Urine Dip 30 (Negative); RBC TRACE-INTACT Ery/ul (0-5); Specific Gravity >=1.030 (1.005-1.025); Urobilinogen 0.2 mg/dL (0-1)
[2022-03-11 23:30] LABS: Epithelial Cells RARE /HPF (FEW); Mucus MANY /HPF (NEGATIVE); WBC 0-2 /HPF (0-5)
[2022-03-11 23:32] LABS: Urine Cultured Indicated? NO
[2022-03-11 23:40] LABS: ALBUMIN 4.2 g/dL (3.5-5.0); ALKALINE PHOSPHATASE 57 U/L (38-126); ANION GAP 14.6 MEQ/L (5-15); BLOOD UREA NITROGEN 9 mg/dL (7-17); CHLORIDE 104 mmol/L (98-107); Calcium 9.5 mg/dL (8.4-10.2); Carbon Dioxide 21 mmol/L (22-30); Creatinine 1 0.56 mg/dL (0.52-1.04); EST GLOMERULAR FILTRATION RATE > 60.0 ML/MIN; Glucose 107 mg/dL (74-106); Potassium 3.7 mmol/L (3.5-5.1); SGOT/AST 19 U/L (14-36); SGPT/ALT 14 U/L (0-35); SODIUM 136 mmol/L (137-145); Total Protein 7.3 g/dL (6.3-8.2)
[2022-03-12] MEDS ORDERED: Zofran 4 MG/2 ML VIAL IV ONE (01:17)
[2022-03-12] MEDS ORDERED: Zofran 4 MG/2 ML VIAL ONE (01:18)
[2022-03-12 02:17] VITALS: BP 104/48; PULSE 72; O2SAT 96
== END 2022-03-12 02:16 | disposition home or self-care (01) ==
LOC: ED 21:06
DX: E87.1 Hypo-osmolality and hyponatremia (principal); E86.0 Dehydration; R11.2 Nausea with vomiting, unspecified; R55 Syncope and collapse; Z72.0 Tobacco use; Z33.1 Pregnant state, incidental
CPT/HCPCS: 36000; 36415; 80053; 81015; 83735; 84484; 85025; 93005; 93041; 94760; 96374; 99284; J2405

== ENCOUNTER 2022-03-16 09:24 | Emergency (ER) | payer OTHER ==
[2022-03-16] MEDS ORDERED: Sodium Chloride 0.9% 1000 ML 1,000 ML IV STA (09:48)
[2022-03-16] MEDS ORDERED: Sodium Chloride 0.9% 1000 ML 1,000 ML ONE (09:51)
--- NOTE | 2022-03-16 09:58 | ERPHSYRPT ---
- History of Present Illness Time Seen by Provider: 03/16/22 09:40 Source: patient Exam Limitations: no limitations Patient Subjective Stated Complaint: Pt c/o of N&V and having the feeling of going to pass out but has never done so, pt was here last week for the same prop blem, pt is almost 12 weeks Triage Nursing Assessment: Pt was brought to the ER by her boss, hypertensive, denies pain, states that she was at work and wasn't doing anything strenious when she suddenly became lightheaded and she laid down on the residents bed due to thinking she was going to pass out but never did, pt did not vomit at this time either, 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 Patient was in our ED a few days ago for the same. Patient was found to be dehydrated. Patient is currently almost 12 weeks . Patient states that she has been experiencing nausea and vomiting. At her last ED visit she was prescribed Zofran. This has helped decrease her frequency of vomiting. However patient has still been vomiting. Patient tried to rehydrate herself with oral bottle of water. Patient was at work today. Patient became dizzy and felt as though she was going to pass out. No syncope. No pelvic pain. No vaginal discharge. Patient currently asymptomatic. She has yet to follow-up with her primary care doctor. Patient is otherwise healthy. She voices no other complaints or concerns at this time. Patient is almost 12 weeks and patient states she is still aches active smoker Timing/Duration: today Severity: moderate Modifying Factors: Improves With: nothing Associated Symptoms: nausea, vomiting, No cough, No rash, No seizure, No weakness Allergies/Adverse Reactions: No Known Drug Allergies Allergy (Verified 03/16/22 09:41) Hx Tetanus, Diphtheria Vaccination/Date Given: Yes Hx Influenza Vaccination/Date Given: No Hx Pneumococcal Vaccination/Date Given: No Travel Risk - International Travel Have you traveled outside of the country in past 3 weeks: No - Coronavirus Screening Are you exhibiting any of the following symptoms?: No - Vaccine Status Have you recieved a Covid-19 vaccination: Yes 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: [employer] - Vaccination Dates Date of 2cond Vaccination (if applicable): 2020 - Review of Systems Constitutional: No Symptoms, No Fever, No Chills Eyes: No Symptoms Ears, Nose, & Throat: No Symptoms Respiratory: No Symptoms, No Cough, No Dyspnea Cardiac: No Symptoms, No Chest Pain, No Edema, No Syncope Abdominal/Gastrointestinal: No Symptoms, No Abdominal Pain, No Nausea, No Vomiting, No Diarrhea Genitourinary Symptoms: No Symptoms, No Dysuria Musculoskeletal: No Symptoms, No Back Pain, No Neck Pain Skin: No Symptoms, No Rash Neurological: No Symptoms, No Dizziness, No Focal Weakness, No Sensory Changes Psychological: No Symptoms Endocrine: No Symptoms Hematologic/Lymphatic: No Symptoms Immunological/Allergic: No Symptoms All Other Systems: Reviewed and Negative - Past Medical History Pertinent Past Medical History: Yes Neurological History: No Pertinent History ENT History: No Pertinent History Cardiac History: No Pertinent History Respiratory History: No Pertinent History Endocrine Medical History: No Pertinent History Musculoskeletal History: No Pertinent History GI Medical History: No Pertinent History History: No Pertinent History Psycho-Social History: Anxiety, Depression Female Reproductive Disorders: No Pertinent History Other Medical History: HX OF DEPRESSION BUT PATIENT REPORTS DOESN'T TAKE MEDS REGULARLY. RECENT XRAY OF SPINE NEGATIVE - Past Surgical History Past Surgical History: Yes Neuro Surgical History: No Pertinent History Cardiac: No Pertinent History Respiratory: No Pertinent History Gastrointestinal: No Pertinent History Genitourinary: No Pertinent History Musculoskeletal: No Pertinent History Female Surgical History: Section - Social History Smoking Status: Current every day smoker How long have you smoked: 2 weeks Exposure to second hand smoke: Yes Drug Use: marijuana Patient Lives Alone: No (2 other children) - Female History Hx Now: Yes Expected Date of Delivery: 10/01/22 - Nursing Vital Signs Nursing Vital Signs: Initial Vital Signs Temperature 97.2 F 03/16/22 09:30 Pulse Rate 63 03/16/22 09:30 Blood Pressure 144/80 03/16/22 09:30 O2 Sat by Pulse Oximetry 95 03/16/22 09:30 Pain Scale Pain Intensity 0 - Physical Exam General Appearance: no apparent distress, alert Eye Exam: PERRL/EOMI, eyes nml inspection Ears, Nose, Throat Exam: normal ENT inspection, TMs normal, pharynx normal, moist mucous membranes Neck Exam: normal inspection, non-tender, supple, full range of motion Respiratory Exam: normal breath sounds, lungs clear, airway intact, No respiratory distress Cardiovascular Exam: regular rate/rhythm, normal heart sounds, normal peripheral pulses Gastrointestinal/Abdomen Exam: soft, normal bowel sounds, No tenderness, No mass Back Exam: normal inspection, normal range of motion, No CVA tenderness, No vertebral tenderness Extremity Exam: normal inspection, normal range of motion, pelvis stable Neurologic Exam: alert, oriented x 3, cooperative, normal mood/affect, nml cerebellar function, nml station & gait, sensation nml, No motor deficits Skin Exam: normal color, warm, dry, No rash Lymphatic Exam: No adenopathy SpO2 Interpretation: normal SpO2: 95 O2 Delivery: Room Air - Course Nursing assessment & vital signs reviewed: Yes EKG Interpreted by Me: RATE (58), Sinus Rhythm, NORMAL AXIS, NORMAL INTERVALS Ordered Tests: Active Orders 24 hr Category Date Time Status [employer] Supervisor STAT Care 03/16/22 09:49 Active EKG-ER Only STAT Care 03/16/22 09:48 Active IV Insertion STAT Care 03/16/22 09:48 Active Pulse Oximetry (ED) STAT Care 03/16/22 09:48 Active CBC W DIFF Stat Lab 03/16/22 09:55 Completed CMP Stat Lab 03/16/22 09:55 Completed TROPONIN Q3H Lab 03/16/22 09:55 Completed TROPONIN Q3H Lab 03/16/22 13:00 Ordered TROPONIN Q3H Lab 03/16/22 16:00 Ordered TROPONIN Q3H Lab 03/16/22 19:00 Ordered TROPONIN Q3H Lab 03/16/22 22:00 Ordered UA W/RFX CULTURE Stat Lab 03/16/22 09:50 Completed Medication Summary Discontinued Medications Generic Name Dose Route Start Last Admin Trade Name Hoa PRN Reason Stop Dose Admin Sodium Chloride 1,000 mls @ 999 mls/hr 03/16/22 09:48 03/16/22 11:04 Sodium Chloride 0.9% 1000 Ml IV 03/16/22 10:48 Infused .Q1H1M STA Infusion Sodium Chloride Confirm 03/16/22 09:51 Sodium Chloride 0.9% 1000 Ml Administered 03/16/22 09:52 Dose 1,000 mls @ ud .ROUTE .STK-MED ONE Lab/Rad Data: Laboratory Result Diagrams 03/16/22 09:55 03/16/22 09:55 Laboratory Results 03/16/22 03/16/22 03/16/22 Range/Units 09:55 09:55 09:55 WBC 8.2 (4.0-10.5) K/mm3 RBC 4.18 (4.1-5.4) M/mm3 Hgb 12.6 (12.0-16.0) gm/dl Hct 37.5 (35-47) % MCV 89.7 (78-100) fl MCH 30.1 (26-32) pg MCHC 33.6 (32-36) g/dl RDW 12.7 (11.5-14.0) % Plt Count 256 (150-450) K/mm3 MPV 10.3 (7.5-11.0) fl Gran % 77.0 H (36.0-66.0) % Eos # (Auto) 0.05 (0-0.5) Absolute Lymphs (auto) 1.38 (1.0-4.6) Absolute Monos (auto) 0.45 (0.0-1.3) Lymphocytes % 16.8 L (24.0-44.0) % Monocytes % 5.5 (0.0-12.0) % Eosinophils % 0.6 (0.00-5.0) % Basophils % 0.1 (0.0-0.4) % Absolute Granulocytes 6.31 (1.4-6.9) Basophils # 0.01 (0-0.4) Sodium 135 L (137-145) mmol/L Potassium 3.8 (3.5-5.1) mmol/L Chloride 108 H (98-107) mmol/L Carbon Dioxide 20 L (22-30) mmol/L Anion Gap 11.7 (5-15) MEQ/L BUN 4 L (7-17) mg/dL Creatinine 0.46 L (0.52-1.04) mg/dL Estimated GFR > 60.0 ML/MIN Glucose 98 (74-106) mg/dL Calcium 9.6 (8.4-10.2) mg/dL Total Bilirubin 0.40 (0.2-1.3) mg/dL AST 18 (14-36) U/L ALT 13 (0-35) U/L Alkaline Phosphatase 51 (38-126) U/L Troponin I < 0.012 (0.000-0.034) ng/mL Serum Total Protein 6.7 (6.3-8.2) g/dL Albumin 4.1 (3.5-5.0) g/dL Urinalys Dipstick Clnc Urine Color (YELLOW) Urine Appearance (CLEAR) Urine pH (5-6) Ur Specific [place] (1.005-1.025) POC Urine Protein Conf (Negative) Urine Ketones (NEGATIVE) Urine Nitrite (NEGATIVE) Urine Bilirubin (NEGATIVE) Urine Urobilinogen (0-1) mg/dL Urine Leukocytes (NEGATIVE) Urine WBC (Auto) (0-5) /HPF Urine RBC (Auto) (0-2) /HPF U Epithel Cells (Auto) (FEW) /HPF Urine Bacteria (Auto) (NEGATIVE) /HPF Urine RBC (0-5) Isaac/ul Urine Mucus (Auto) (NEGATIVE) /HPF Ur Culture Indicated? Urine Glucose (NEGATIVE) mg/dL 03/16/22 Range/Units 09:50 WBC (4.0-10.5) K/mm3 RBC (4.1-5.4) M/mm3 Hgb (12.0-16.0) gm/dl Hct (35-47) % MCV (78-100) fl MCH (26-32) pg MCHC (32-36) g/dl RDW (11.5-14.0) % Plt Count (150-450) K/mm3 MPV (7.5-11.0) fl Gran % (36.0-66.0) % Eos # (Auto) (0-0.5) Absolute Lymphs (auto) (1.0-4.6) Absolute Monos (auto) (0.0-1.3) Lymphocytes % (24.0-44.0) % Monocytes % (0.0-12.0) % Eosinophils % (0.00-5.0) % Basophils % (0.0-0.4) % Absolute Granulocytes (1.4-6.9) Basophils # (0-0.4) Sodium (137-145) mmol/L Potassium (3.5-5.1) mmol/L Chloride (98-107) mmol/L Carbon Dioxide (22-30) mmol/L Anion Gap (5-15) MEQ/L BUN (7-17) mg/dL Creatinine (0.52-1.04) mg/dL Estimated GFR ML/MIN Glucose (74-106) mg/dL Calcium (8.4-10.2) mg/dL Total Bilirubin (0.2-1.3) mg/dL AST (14-36) U/L ALT (0-35) U/L Alkaline Phosphatase (38-126) U/L Troponin I (0.000-0.034) ng/mL Serum Total Protein (6.3-8.2) g/dL Albumin (3.5-5.0) g/dL Urinalys Dipstick Clnc MAIN LAB Urine Color YELLOW (YELLOW) Urine Appearance CLEAR (CLEAR) Urine pH 7.0 (5-6) Ur Specific [place] 1.020 (1.005-1.025) POC Urine Protein Conf TRACE (Negative) Urine Ketones NEGATIVE (NEGATIVE) Urine Nitrite NEGATIVE (NEGATIVE) Urine Bilirubin NEGATIVE (NEGATIVE) Urine Urobilinogen 0.2 (0-1) mg/dL Urine Leukocytes NEGATIVE (NEGATIVE) Urine WBC (Auto) 0-2 (0-5) /HPF Urine RBC (Auto) 0-2 (0-2) /HPF U Epithel Cells (Auto) RARE (FEW) /HPF Urine Bacteria (Auto) RARE (NEGATIVE) /HPF Urine RBC TRACE-INTACT (0-5) Isaac/ul Urine Mucus (Auto) SLIGHT (NEGATIVE) /HPF Ur Culture Indicated? NO Urine Glucose NEGATIVE (NEGATIVE) mg/dL - Progress Progress: improved Progress Note: Patient reassessed. Patient remains asymptomatic. Laboratory work-up unremarkable. Patient received IV fluids in our ED. No vomiting observed. However during observation it was observed that patient's heart rate would occasionally dip down into the low 50s. There is a possibility that this bradycardia can be contributing to patient's symptoms. A Holter monitor will be placed. Patient currently has a follow-up appointment scheduled with Dr. Escalante. She agrees to follow-up with Dr. Escalante within 48 hours for reevaluation. Patient voices no other complaints or concerns at this time. Patient states he is ready for discharge. Case discussed with Dr. Kunz covering Dr. Escalante who agrees with plan of care. Portions of this note were created with voice recognition technology. There may be grammatical, spelling, punctuation or sound alike errors 03/16/22 11:28 Smoking cessation discussed. 03/16/22 11:31 Discussed with : Millie Will see patient in: office (Dr. Kunz covering Dr. Escalante. Patient to follow-up with Dr. Escalante upon completion of Holter monitor observation.) Counseled pt/family regarding: lab results, diagnosis, need for follow-up - Departure Departure Disposition: Home Clinical Impression: Near syncope, , Nausea and vomiting Condition: Stable Critical Care Time: No Referrals: SOPHIA SRIVASTAVA, AWNING CRAFTSPERSON [Primary Care Provider] - Follow up/PCP as directed Additional Instructions: Discharge/Care Plan BENNETTLIZET GARCIAS was seen on 03/16/22 in the Emergency Room. The patient was counseled regarding Diagnosis,Lab results, Imaging studies, need for follow up and when to return to the Emergency Room. Prescriptions given: Discharge Note I have spoken with the patient and/or caregivers. I have explained the patient's condition, diagnosis and treatment plan based on the information available to me at this time. I have answered the patient's and/or caregiver's questions and addressed any concerns. The patient and/or caregivers have as good understanding of the patient's diagnosis, condition and treatment plan as can be expected at this point. The vital signs have been stable. The patient's condition is stable and appropriate for discharge from the emergency department. The patient will pursue further outpatient evaluation with the primary care physician or other designated or consulting physician as outlined in the discharge instructions. The patient and/or caregivers are agreeable to this plan of care and follow-up instructions have been explained in detail. The patient and/or caregivers have received these instruction. The patient/and or caregivers are aware that any significant change in condition or worsening of symptoms should prompt an immediate return to this or the closest emergency department or call 911.
[2022-03-16 10:06] LABS: Absolute Neutrophil Ct (ANC) 6.31 (1.4-6.9); Basophil (Absolute #) 0.01 (0-0.4); Eosinophil % 0.6 % (0.00-5.0); Eosinophil (Absolute #) 0.05 (0-0.5); Hematocrit 37.5 % (35-47); Hemoglobin 12.6 gm/dl (12.0-16.0); Lymphocyte (Absolute #) 1.38 (1.0-4.6); Lymphocytes % 16.8 % (24.0-44.0); Mean Cell Volume 89.7 fl (78-100); Mean Corpuscular Hemoglobin 30.1 pg (26-32); Mean Corpuscular Hgb Concent. 33.6 g/dl (32-36); Mean Platelet Volume 10.3 fl (7.5-11.0); Monocyte (Absolute #) 0.45 (0.0-1.3); Monocytes % 5.5 % (0.0-12.0); Platelet Count 256 K/mm3 (150-450); Red Blood Count 4.18 M/mm3 (4.1-5.4); Red Cell Distribution Width 12.7 % (11.5-14.0); White Blood Count 8.2 K/mm3 (4.0-10.5)
[2022-03-16 10:08] LABS: Appearance CLEAR (CLEAR); Bacteria RARE /HPF (NEGATIVE); Epithelial Cells RARE /HPF (FEW); Mucus SLIGHT /HPF (NEGATIVE); RBC 0-2 /HPF (0-2); WBC 0-2 /HPF (0-5)
[2022-03-16 10:09] LABS: Bilirubin NEGATIVE (NEGATIVE); Glucose NEGATIVE (NEGATIVE); Ketones NEGATIVE (NEGATIVE); Nitrite NEGATIVE (NEGATIVE); Protein,Urine Dip TRACE (Negative); RBC TRACE-INTACT Ery/ul (0-5); Urine Cultured Indicated? NO; Urobilinogen 0.2 mg/dL (0-1)
[2022-03-16 10:10] LABS: Dipstick done @ ? MAIN LAB
[2022-03-16 10:22] LABS: ALBUMIN 4.1 g/dL (3.5-5.0); ALKALINE PHOSPHATASE 51 U/L (38-126); ANION GAP 11.7 MEQ/L (5-15); BLOOD UREA NITROGEN 4 mg/dL (7-17); CHLORIDE 108 mmol/L (98-107); Calcium 9.6 mg/dL (8.4-10.2); Carbon Dioxide 20 mmol/L (22-30); Creatinine 1 0.46 mg/dL (0.52-1.04); EST GLOMERULAR FILTRATION RATE > 60.0 ML/MIN; Glucose 98 mg/dL (74-106); Potassium 3.8 mmol/L (3.5-5.1); SGOT/AST 18 U/L (14-36); SGPT/ALT 13 U/L (0-35); SODIUM 135 mmol/L (137-145); Total Protein 6.7 g/dL (6.3-8.2)
[2022-03-16 11:04] VITALS: BP 121/60
[2022-03-16 11:45] VITALS: PULSE 73; O2SAT 96
== END 2022-03-16 11:50 | disposition home or self-care (01) ==
LOC: ED 09:24
DX: R55 Syncope and collapse (principal); R11.2 Nausea with vomiting, unspecified; Z33.1 Pregnant state, incidental; Z72.0 Tobacco use
CPT/HCPCS: 36000; 36415; 80053; 81015; 84484; 85025; 93005; 93041; 93225; 94760; 96360; 99284